=== PATIENT | male | born 1970 | race Caucasian/White ===

== ENCOUNTER 2016-11-19 07:05 | Emergency (ER) | payer BC, OTHER ==
[~2016-11-19] VITALS: Ht 180.3 cm; Wt 103.5 kg
[~2016-11-19 07:05] MED LIST: IBUP-1050 PO
[2016-11-19 07:10] VITALS: TEMP 36.6; Ht 180.3 cm; Wt 103.5 kg
[2016-11-19 07:39] VITALS: BP 151/94; PULSE 64; O2SAT 98
--- NOTE | 2016-11-19 07:43 | EMERGENCY ROOM VISIT NOTE ---
History Report prepared by Melania: Shey Yousif Under the Supervision of: Dr. Esteban Christian M.D. First contact with patient: 07:22 Chief Complaint: RECTAL BLEEDING Stated Complaint: LOWER GI/RECTAL BLEEDING History of Present Illness The patient is a 46 year old male who presents to the Emergency Room with complaints of a sudden episode or rectal bleeding that occurred around 1 hour prior to arrival. The patient states that he had a normal bowel movement this morning, denying any straining or pain with his bowel movement. He states that when he went to wipe he noticed a large amount of blood on the toilet paper and in the toilet. The patient states that he was then dripping blood and states that it took 15-20 minutes to stop. He denies any history of this, but states that he has had small streaks of blood once every 4-5 months with a bowel movement. The patient denies any recent rectal trauma. He states that he had a normal colonoscopy two years ago. The patient states that he has a history of diverticulitis. He denies being on any anticoagulants. The patient reports moderate use of Ibuprofen, noting that he takes it twice per week. He reports a surgical history of an appendectomy. The patient denies any abdominal pain. He additionally reports that he rides an exercise bike at 1.5 hours at a time very frequently. Source of History: patient Onset: one hour prior to arrival Position: other (rectal) Quality: other (bleeding) Timing: other (sudden episode) Associated Symptoms: No abdominal pain Review of Systems See HPI for pertinent positives & negatives. A total of 10 systems reviewed and were otherwise negative. Past Medical & Surgical Medical Problems: (1) Appendicitis Surgical Problems: (1) History of appendectomy (2) History of vasectomy Family History Diabetes mellitus FH: cancer FH: diverticulitis MOTHER FH: heart disease Hypertension Social History Smoking Status: Never Smoker Alcohol Use: heavy Drug Use: none Marital Status: Housing Status: lives with family Occupation Status: employed Current/Historical Medications No Active Prescriptions or Reported Meds Allergies Coded Allergies: No Known Allergies (Unverified , 11/19/16) Physical Exam Vital Signs Date Time Temp Pulse Resp B/P (MAP) Pulse Ox O2 Delivery O2 Flow Rate FiO2 11/19/16 07:39 64 18 151/94 98 Room Air 11/19/16 07:10 36.6 66 18 143/97 97 Room Air Physical Exam GENERAL: Patient is in no acute distress. HEENT: No acute trauma, normocephalic atraumatic, mucous membranes moist, no nasal congestion, no scleral icterus. NECK: No stridor, no adenopathy, no meningismus, trachea is midline. LUNGS: Clear to auscultation bilaterally, no wheeze, no rhonchi, breath sounds equal. HEART: Without murmurs gallops or rubs, regular rate and rhythm. ABDOMEN: Soft, nontender, bowel sounds positive, no hernias, no peritonitis. RECTAL: At the 10 and 11 oclock position of the anus, there are 2 mucosal tears that are not actively bleeding, no hemorrhoids, brown stool, no masses felt. EXTREMITIES: No cyanosis or edema, full range of motion of all the joints without pain or difficulty, no signs for acute trauma. NEUROLOGIC: Oriented x 3, no acute motor or sensory deficits, no focal weakness. SKIN: No rash, no jaundice, no diaphoresis. Medical Decision & Procedures ED Course 07: The patient was evaluated in room B11B. A complete history and physical exam was performed. I discussed the exam findings with him and I discussed the treatment plan. He verbalized complete understanding and agreement. He is ready to go home. Medical Decision The patient is a 46 year old male who presents to the ED with complaints of rectal bleeding. Differential diagnoses considered include Coagulopathy, anemia , hemorrhoids, anal tearing, lower GI bleeding. The patient presents with bright red rectal bleeding. He has no abdominal pain. He is not on any anticoagulation. On exam, he has some anal mucosal tears which I think had been bleeding earlier. There is no evidence for mass by rectal exam and the stool was brown in color. The patient was reassured. He is being discharged with conservative measures. Vaseline and gentle wiping were suggested. If worsening, he can return. Medication Reconcilliation Current Medication List: was personally reviewed by me Impression Primary Impression: Anal tear Additional Impression: Rectal bleeding Scribe Attestation The scribe's documentation has been prepared under my direction and personally reviewed by me in its entirety. I confirm that the note above accurately reflects all work, treatment, procedures, and medical decision making performed by me. Departure Information Dispostion Home / Self-Care Prescriptions No Active Prescriptions or Reported Meds Referrals Gregorio Martinez DO (PCP) Forms HOME CARE DOCUMENTATION FORM, IMPORTANT VISIT INFORMATION Patient Instructions My [facility] Additional Instructions vasoline to the area as discussed wipe gently return if worsening Problem Qualifiers
== END 2016-11-19 07:51 | disposition home or self-care (01) ==
LOC: C.EDB 07:05
DX: K62.81 Anal sphincter tear (healed) (nontraumatic) (old) (principal); K62.5 Hemorrhage of anus and rectum; Z83.3 Family history of diabetes mellitus; Z80.9 Family history of malignant neoplasm, unspecified; Z83.79 Family history of other diseases of the digestive system; Z82.49 Family history of ischemic heart disease and other diseases of the circulatory system

== ENCOUNTER 2020-05-22 00:57 | Inpatient (IN) ==
[2020-05-22 01:36] LABS: Basophils # (auto) 0.03 K/uL (0-0.2); Basophils % (auto) 0.3 %; Eosinophils # (auto) 0.22 K/uL (0-0.5); Hematocrit (blood only) 35.9 % (42-52); Hemoglobin 12.1 g/dL (14.0-18.0); Immature Granulocytes # (auto) 0.05 K/uL (0.00-0.02); Immature Granulocytes % (auto) 0.5 %; Lymphocytes # (auto) 3.97 K/uL (1.2-3.4); Mean Corpuscular Hemoglobin 28.9 pg (25-34); Mean Corpuscular Hgb Conc 33.7 g/dL (32-36); Mean Corpuscular Volume 85.7 fL (80-100); Mean Platelet Volume 9.4 fL (7.4-10.4); Monocytes # (auto) 0.79 K/uL (0.11-0.59); Monocytes % (auto) 7.2 %; Neutrophils # (auto) 5.97 K/uL (1.4-6.5); Platelet Count 331 K/uL (130-400); RDW Coefficient of Variation 12.9 % (11.5-14.5); RDW Standard Deviation 40.2 fL (36.4-46.3); Red Blood Count 4.19 M/uL (4.7-6.1); White Blood Count 11.03 K/uL (4.8-10.8)
--- NOTE | 2020-05-22 01:37 | Emergency Department Note ---
History of Present Illness General Chief complaint: GI Assessment Stated complaint: INTESTINAL BLEEDING,TOLD TO COME BACK Time Seen by Provider: 05/22/20 01:03 Source: patient Mode of arrival: ambulatory Limitations: no limitations History of Present Illness This patient is a 49-year-old male who presents to the emergency department complaining of GI bleeding. The patient states that he was seen here 2 days ago due to an episode of rectal bleeding. He states that he had a large amount of bleeding at that time, he was bleeding through his clothes in the car. The bleeding slowed/stopped while he was here and he was discharged to follow-up with GI. His appointment is scheduled for later this morning. The patient states that about 4 hours prior to arrival, he felt a slight pain in the left lower quadrant of his abdomen. 20 minutes ago, he had the urge to have a bowel movement, and when he went it was just blood. He states it was a large amount of blood, no bleeding in his underwear since then. He does have a history of di verticulitis and had a colonoscopy around age 41. He denies any recent NSAID use. He denies any history of GI bleeding other than these 2 episodes. He denies any lightheadedness/syncope. He denies nausea/vomiting or painful bowel movements. Home Medications Medication Instructions Recorded Confirmed Type ciprofloxacin HCl 500 mg PO BID #15 tab 05/23/20 Rx metronidazole 500 mg PO TID #22 tab 05/23/20 Rx Allergies Allergy/AdvReac Type Severity Reaction Status Date / Time Penicillins Allergy Unknown STRONG Verified 05/22/20 01:16 FAMILY HX ALLERGY Past Med/Surg History Medical History Diverticulitis Surgical History History of appendectomy History of vasectomy Family History Mother Diverticulosis s/p colonic resection Grandfather (Paternal) Diverticulosis Social History Smoking Status: Never smoker Hx Alcohol Use: Yes Hx Substance Use: No Preferred Language: Icelandic Communication Ability: Effective Beliefs That Will Affect Care: None Current Living Situation: Spouse and Family Other Information That Helps Us Care for You: No Feels Safe at Home: Yes Safety Concerns: Feels Safe At This Time Assistive Devices: None Review of Systems A total of 10 systems reviewed and were otherwise negative Physical Exam Vital Signs Vital Signs - 24 hr 05/22/20 00:59 05/22/20 02:10 05/22/20 02:30 Temperature 36.5 C Temperature Source Temporal Artery Scan Pulse Rate 88 73 Pulse Rate [Right Finger] 66 Pulse Rate from SpO2 Sensor 73 Respiratory Rate 16 22 18 Respiratory Effort / Characteristics Non-Labored Spontaneous Respiratory Depth Normal Normal Respiratory Pattern Regular Blood Pressure 162/82 H Blood Pressure [Right Arm] 162/82 H Blood Pressure Mean 108 Blood Pressure Mean [Right Arm] 108 Blood Pressure Position [Right Arm] Lying Pulse Oximetry 98 98 98 Oxygen Delivery Method Room Air Room Air Sepsis Recent Fever Within 48 Hours No Sepsis New/Unexplained Change in Mental Status No Sepsis Action Taken by Nursing No Action Required VITALS: Vitals are noted on the nurse's note and reviewed by myself. GENERAL: This is a 49-year-old male, in no acute distress, nondiaphoretic, well- developed well-nourished. SKIN: The skin was without rashes. EYES: Pupils equal round and reactive to light and accommodation. MOUTH: Mucous membranes moist. NECK: Supple without nuchal rigidity. HEART: Regular rate and rhythm without murmurs gallops or rubs. LUNGS: Clear to auscultation bilaterally without wheezes, rales or rhonchi. ABDOMEN: Positive bowel sounds x 4. Soft, nontender to palpation. No guarding or rebound tenderness. RECTAL: No external hemorrhoids noted. Bright red blood noted on rectal exam. NEURO: Patient was alert and oriented to person place and time. Course Consultations Consultation #1: Dr. Ankit Roman [facility] [place] Administered Medications Ciprofloxacin Lactate (Cipro / D5w) 200 mg in 100 mls @ 100 mls/hr IV Q12 [facility]; Protocol Stop: 06/01/20 20:59 Last Infusion: 05/23/20 22:55 Dose: 0 mls/hr Documented by: [id number] Admin: 05/23/20 21:15 Dose: 100 mls/hr Documented by: [id number] Infusion: 05/23/20 10:15 Dose: 0 mls/hr Documented by: [id number] Admin: 05/23/20 09:11 Dose: 100 mls/hr Documented by: [id number] Infusion: 05/22/20 22:21 Dose: 0 mls/hr Documented by: [id number] Admin: 05/22/20 21:02 Dose: 100 mls/hr Documented by: [id number] Metronidazole (Flagyl) 500 mg in 100 mls @ 100 mls/hr IV Q8H MARCOS Stop: 06/01/20 11:59 Last Infusion: 05/23/20 21:19 Dose: 0 mls/hr Documented by: [id number] Admin: 05/23/20 20:13 Dose: 100 mls/hr Documented by: [id number] Infusion: 05/23/20 13:15 Dose: 0 mls/hr Documented by: [id number] Admin: 05/23/20 12:13 Dose: 100 mls/hr Documented by: [id number] Infusion: 05/23/20 06:14 Dose: 0 mls/hr Documented by: [id number] Admin: 05/23/20 05:08 Dose: 100 mls/hr Documented by: [id number] Infusion: 05/22/20 21:02 Dose: 0 mls/hr Documented by: [id number] Admin: 05/22/20 20:02 Dose: 100 mls/hr Documented by: [id number] Infusion: 05/22/20 12:45 Dose: 0 mls/hr Documented by: [id number] Admin: 05/22/20 11:41 Dose: 100 mls/hr Documented by: [id number] Discontinued Medications Potassium Chloride/Sodium Chloride (Normal Saline W/20 Meq Kcl) 20 meq in 1,000 mls @ 80 mls/hr IV .[id number] MARCOS Stop: 05/23/20 18:49 Last Infusion: 05/23/20 17:38 Dose: 0 mls/hr Documented by: [id number] Admin: 05/23/20 05:30 Dose: 100 mls/hr Documented by: [id number] Infusion: 05/23/20 05:30 Dose: 100 mls/hr Documented by: [id number] Admin: 05/22/20 20:01 Dose: 100 mls/hr Documented by: [id number] Infusion: 05/22/20 18:53 Dose: 100 mls/hr Documented by: [id number] Admin: 05/22/20 08:53 Dose: 100 mls/hr Documented by: [id number] Pantoprazole Sodium 40 mg/ (Syringe) 10 mls @ 5 mls/min IV BID MARCOS Stop: 06/21/20 08:59 Last Admin: 05/22/20 10:36 Dose: 5 mls/min Documented by: [id number] Ioversol (Ioversol 100ml) 100 ml IV ONCE ONE Stop: 05/22/20 02:10 Last Admin: 05/22/20 02:09 Dose: 92 ml Documented by: [id number] Medical Decision Making Differential Diagnosis Diverticulosis, AVM, coagulopathy, colitis, inflammatory bowel disease, malignancy, Arabella-Schultz tear, esophagitis, peptic ulcer disease, variceal bleed, gastritis, epistaxis, fissure, hemorrhoids, as well as other pathologies. Home Medications Current Medication List: was personally reviewed by me Laboratory Data Attestation: I reviewed the patient's lab results. Result diagrams: 05/23/20 21:00 05/22/20 01:27 Lab Results 05/22/20 05/22/20 05/22/20 Range/Units 01:27 01:27 01:27 WBC 11.03 H (4.8-10.8) K/uL RBC 4.19 L (4.7-6.1) M/uL Hgb 12.1 L (14.0-18.0) g/dL Hct 35.9 L (42-52) % MCV 85.7 (80-100) fL MCH 28.9 (25-34) pg MCHC 33.7 (32-36) g/dL RDW Std Deviation 40.2 (36.4-46.3) fL RDW Coeff of Emanuel 12.9 (11.5-14.5) % Plt Count 331 (130-400) K/uL MPV 9.4 (7.4-10.4) fL Immature Gran % (Auto) 0.5 % Neut % (Auto) 54.0 % Lymph % (Auto) 36.0 % [place] % (Auto) 7.2 % Eos % (Auto) 2.0 % Baso % (Auto) 0.3 % Neut # (Auto) 5.97 (1.4-6.5) K/uL Lymph # (Auto) 3.97 H (1.2-3.4) K/uL [place] # (Auto) 0.79 H (0.11-0.59) K/uL Eos # (Auto) 0.22 (0-0.5) K/uL Baso # (Auto) 0.03 (0-0.2) K/uL Immature Gran # (Auto) 0.05 H (0.00-0.02) K/uL PT 10.2 (9.0-12.0) Seconds INR 1.0 (0.9-1.1) APTT 22.2 (21.0-31.0) Seconds PTT Ratio 0.8 Sodium (136-145) mmol/L Potassium (3.5-5.1) mmol/L Chloride (98-107) mmol/L Carbon Dioxide (21-32) mmol/L Anion Gap (3-11) BUN (7-18) mg/dl Creatinine (0.6-1.4) mg/dl Est Cr Clr Drug Dosing ml/min Est GFR ( Amer) Est GFR (Non-Af Amer) BUN/Creatinine Ratio (10-20) Glucose (70-99) mg/dl Calcium (8.5-10.1) mg/dl Total Bilirubin (0.2-1) mg/dl AST (15-37) U/L ALT (12-78) U/L Alkaline Phosphatase (45-117) U/L Total Protein (6.4-8.2) gm/dl Albumin (3.4-5.0) gm/dl Globulin (2.5-4.0) gm/dl Albumin/Globulin Ratio (0.9-2) COVID-19 Eval Order SARS-CoV-2 (PCR) (Negative) Influenza Type A (PCR) (Neg) Influenza Type B (PCR) (Neg) RSV (RT-PCR) (Neg) Blood Type A Negative Antibody Screen NEGATIVE 05/22/20 05/22/20 05/22/20 Range/Units 01:27 02:39 02:39 WBC (4.8-10.8) K/uL RBC (4.7-6.1) M/uL Hgb (14.0-18.0) g/dL Hct (42-52) % MCV (80-100) fL MCH (25-34) pg MCHC (32-36) g/dL RDW Std Deviation (36.4-46.3) fL RDW Coeff of Emanuel (11.5-14.5) % Plt Count (130-400) K/uL MPV (7.4-10.4) fL Immature Gran % (Auto) % Neut % (Auto) % Lymph % (Auto) % [place] % (Auto) % Eos % (Auto) % Baso % (Auto) % Neut # (Auto) (1.4-6.5) K/uL Lymph # (Auto) (1.2-3.4) K/uL [place] # (Auto) (0.11-0.59) K/uL Eos # (Auto) (0-0.5) K/uL Baso # (Auto) (0-0.2) K/uL Immature Gran # (Auto) (0.00-0.02) K/uL PT (9.0-12.0) Seconds INR (0.9-1.1) APTT (21.0-31.0) Seconds PTT Ratio Sodium 141 (136-145) mmol/L Potassium 3.8 (3.5-5.1) mmol/L Chloride 111 H (98-107) mmol/L Carbon Dioxide 25 (21-32) mmol/L Anion Gap 5.0 (3-11) BUN 16 (7-18) mg/dl Creatinine 1.22 (0.6-1.4) mg/dl Est Cr Clr Drug Dosing 93.2 ml/min Est GFR ( Amer) 80.8 Est GFR (Non-Af Amer) 69.7 BUN/Creatinine Ratio 13.4 (10-20) Glucose 123 H (70-99) mg/dl Calcium 8.0 L (8.5-10.1) mg/dl Total Bilirubin 0.3 (0.2-1) mg/dl AST 17 (15-37) U/L ALT 32 (12-78) U/L Alkaline Phosphatase 62 (45-117) U/L Total Protein 6.7 (6.4-8.2) gm/dl Albumin 3.1 L (3.4-5.0) gm/dl Globulin 3.6 (2.5-4.0) gm/dl Albumin/Globulin Ratio 0.9 (0.9-2) COVID-19 Eval Order CovFluRsv at [facility] SARS-CoV-2 (PCR) NEGATIVE (Negative) Influenza Type A (PCR) Negative (Neg) Influenza Type B (PCR) Negative (Neg) RSV (RT-PCR) Negative (Neg) Blood Type Antibody Screen Imaging Data Attestation: I personally reviewed and interpreted this imaging study as follows: Radiologist's Impression: Abdomen/Pelvis CT 05/22/20 01:18 CT OF THE ABDOMEN AND PELVIS WITH CONTRAST CLINICAL HISTORY: Left lower quadrant abdominal pain. GI bleed. COMPARISON STUDY: CT of the abdomen and pelvis February 27, 2013. TECHNIQUE: Following IV administration of 92 mL of Optiray-320, axial images of the abdomen and pelvis were obtained from the lung bases to the proximal femurs. Images were reviewed in the axial, sagittal, and coronal planes. IV contrast was administered without complication. Automated exposure control was utilized for the study. A dose lowering technique was utilized adhering to the principles of ALARA. CT DOSE: 1101.76 mGy.cm FINDINGS: Lung bases are clear. No pneumatosis, free air or portal venous gas is present. The liver, spleen, adrenal glands, kidneys and pancreas are unremarkabl e. There is no biliary or pancreatic ductal dilatation. There is no peripancreatic or pericholecystic infiltration. No hydronephrosis is present. Nephrograms are symmetric. Major vasculature is patent. Note is made of diverticulosis of the descending colon and sigmoid colon. There is no definite evidence for acute diverticulitis. There is subtle infiltration adjacent to the descending colon. No bowel wall thickening is identified. No active extravasation within the small or large bowel is identified. There is no lymphadenopathy. The appendix is surgically absent. IMPRESSION: 1. Left colon diverticulosis. Subtle infiltration adjacent to the descending colon is equivocal for mild diverticulitis. No bowel wall thickening. No free air or abscess. No active extravasation identified within the small or large bowel. 2. No bowel obstruction. ACT 112: Negative or not required by law. Electronically signed by: Mike Faria M.D. 05/22/2020 7:00 AM ECG Data Attestation: I personally reviewed and interpreted this ECG as follows: Indication: + weakness Rate (beats per minute): 82 Rhythm: + normal sinus ECG Intervals/blocks: + Normal QRS ECG ST segments: + Normal ST segments ECG Findings: + LVH Change: no significant change MDM Narrative The patient is a 49-year-old male who presents today complaining of rectal bleeding. Patient has had two episodes of significant rectal bleeding in the past 2 days, no bleeding between these episodes. Patient was seen here 2 days ago and discharged with close outpatient follow up as bleeding had stopped. Labs today show that the hemoglobin has dropped from 14.5 to 12.1 since his last visit here. CT was performed and showed questionable mild diverticulitis. Patient has had very minimal pain, no fevers and presentation does not seem consistent with diverticulitis. Antibiotic administration was deferred to hospitalist. Patient was admitted to the [facility] Hospitalist service for further care of his GI bleed. Impression & Plan Acute lower GI bleeding Discharge Plan Visit Data Chief Complaint: GI Assessment Stated Complaint: INTESTINAL BLEEDING,TOLD TO COME BACK ED Provider: Rosa Yee ED Midlevel Provider: Reina Mast Discharge Problem: Acute lower GI bleeding Patient Disposition: Admitted As Inpatient Discharge Instructions Interventions: ED Discharge Assessment Last Done: 05/22/20 06:05
[2020-05-22 01:51] LABS: Partial Thromboplastin Ratio 0.8; Partial Thromboplastin Time 22.2 Seconds (21.0-31.0); Prothrombin Time 10.2 Seconds (9.0-12.0)
[2020-05-22 01:57] LABS: Albumin Level 3.1 gm/dl (3.4-5.0); BUN Creatinine Ratio 13.4 (10-20); Creatinine Clr Calc Pharmacy 93.2 ml/min; Est GFR (African American) 80.8; Est GFR (Non-African American) 69.7; Potassium 3.8 mmol/L (3.5-5.1)
[2020-05-22 01:59] LABS: Albumin Globulin Ratio 0.9 (0.9-2); Bilirubin,Total 0.3 mg/dl (0.2-1); Globulin 3.6 gm/dl (2.5-4.0); Total Protein 6.7 gm/dl (6.4-8.2)
[2020-05-22] MEDS ORDERED: OPTIRAY 320 100ml IV ONE (02:09)
--- NOTE | 2020-05-22 03:06 | Hospitalist Consultation ---
Date of Consultation May 22, 2020 History of Present Illness Allergies Allergy/AdvReac Type Severity Reaction Status Date / Time Penicillins Allergy Unknown STRONG Verified 05/22/20 01:16 FAMILY HX ALLERGY Home Medications Medication Instructions Recorded Confirmed Type ibuprofen 400 mg PO DIRECTED PRN 05/20/20 05/22/20 History Patient History Medical History Diverticulitis Surgical History History of appendectomy History of vasectomy Social History Smoking Status: Never smoker Preferred Language: Tajik Feels Safe at Home: Yes Results & Data Results & Data ([facility]) Vital Signs (Past 12 Hours) Vital Signs Temp Pulse Pulse Resp BP BP Pulse Ox 05/22/20 02:30 66 18 162/82 H 98 05/22/20 02:10 73 22 162/82 H 98 05/22/20 00:59 36.5 C 88 16 98
--- NOTE | 2020-05-22 03:07 | History & Physical Report ---
Date of Service May 22, 2020 Assessment & Plan (1) Hematochezia: Patient is a 49 year old male with PMHx diverticulitis who presents after 1 hour history of bright red blood per rectum. Of note, patient had presented on 05/20/20 with similar concerns, however, the bleeding at that time had stopped and it was felt that patient was stable enough to go home with plans to have an appointment with GI on 05/22/20 at 9:30AM. Lower GI Bleed -Hemoglobin at 12.3 on admission, a ~2 point drop since symptoms started 2 days ago -Patient currently asymptomatic in regards to pain, discomfort, or active hematochezia -CT Ab/Pelv without signs of diverticular bleed as the cause. Very mild diverticulitis noted in the descending colon, however, symptomatically patient is without pain. -Will defer antibiotics at this time unless symptoms of abdominal pain or fever. -GI Consulted for possibly colonoscopy -As suspect lower GI bleed, no indication at this time for protonix -NPO -Will check H&H q8h, patient consented for blood if Hgb <7, may see slight drop due to dilutional effects from IVF -NSS +20meq KCl 100ml/hr x2L while NPO Dispo: Med/Surg telemetry for closer monitoring of HR ad BP as signs of worsening bleed, IVF, likely colonoscopy. FEN: NPO, NSS +20meqKCl 100ml/hr x2L DVT: SCDs, chemoprophylaxis contraindicated Code: Full History of Present Illness Chief Complaint: rectal bleeding Primary Care Provider: NO PCP Patient is a 49 year old male with PMHx diverticulitis who presents after 1 hour history of bright red blood per rectum. Of note, patient had presented on 05/20/20 with similar concerns, however, the bleeding at that time had stopped and it was felt that patient was stable enough to go home with plans to have an appointment with GI on 05/22/20 at 9:30AM. Patient notes that since he was last seen in the ED he had no issues until midnight tonight where he felt that he was about to have diarrhea. He notes that he had roughly 4-5 bowel movements all consisting of bright red blood. Patient then immediately presented to the ED instead of waiting for his appointment later this day for evaluation. Since he has been in the hospital, he has not had any further bleeding per rectum. He notes that prior to the bloody bowel movements he did have some lower L quadrant abdominal pain, however, that has also resolved. Currently patient notes that he feels well and is without fever, chills, SOB, chest pain, abdominal pain, dysuria, hematuria. He does note the recent history of hematochezia. Med Hx: Diverticulitis Surg Hx: Appendectomy, Colonoscopy Soc Hx: No tobacco or illicit drug use. Drinks 12 alcoholic beverages/month Allergies Allergy/AdvReac Type Severity Reaction Status Date / Time Penicillins Allergy Unknown STRONG Verified 05/22/20 01:16 FAMILY HX ALLERGY Home Medications Medication Instructions Recorded Confirmed Type ibuprofen 400 mg PO DIRECTED PRN 05/20/20 05/22/20 History Past Med/Surg History Medical History Diverticulitis Surgical History History of appendectomy History of vasectomy Family History Mother Diverticulosis s/p colonic resection Grandfather (Paternal) Diverticulosis Social History Smoking Status: Never smoker Hx Alcohol Use: Yes Hx Substance Use: No Preferred Language: Bahraini Communication Ability: Effective Beliefs That Will Affect Care: None Current Living Situation: Spouse and Family Other Information That Helps Us Care for You: No Feels Safe at Home: Yes Safety Concerns: Feels Safe At This Time Assistive Devices: None Review of Systems Review of Systems: All systems reviewed & are unremarkable except as noted in Subjective Physical Exam Constitutional: WD/WN, vitals as above Eyes: PERRL, conjunctivae normal, anicteric sclerae ENMT: external ear and nose normal, oropharynx normal Respiratory: normal respiratory effort, lungs clear to auscultation Cardiovascular: RRR, no murmur, no edema Gastrointestinal (Abdomen): normal bowel sounds, soft, nontender, no hepatosplenomegaly Deferred rectal exam. Per discussion with ED provider rectal exam did show bright red blood per rectum Musculoskeletal: no cyanosis or clubbing, extremities motor strength 5/5 Skin: no rashes, warm and dry Neurologic: PERRL, EOMI, accommodation nl, no face palsy, no dysarthria Psychiatric: A+Ox3, euthymic affect Results & Data Results & Data ([facility]) Vital Signs (Past 12 Hours) Vital Signs Temp Pulse Pulse Resp BP BP Pulse Ox 05/22/20 02:30 66 18 162/82 H 98 05/22/20 02:10 73 22 162/82 H 98 05/22/20 00:59 36.5 C 88 16 98 Code Status & VTE Plan VTE Prophylaxis Plan VTE Prophylaxis will be ordered: Yes Supervising Physician Co-Signing Physician Notes Patient seen and examined, chart reviewed, case discussed with Dr. Hines and I agree with his assessment and plan as documented above. Briefly, patient is a 49yo male wtih history of diverticulosis presenting with hematochezia - large passage of bright red blood per rectum. Patient was to see GI today in outpatient clinic. He denies abdominal pain, nausea, vomiting. No additional complaints at this time On exam he is afebrile, HD stable, NAD Skin - intact, no rash HEENT - NC/AT, PERRL, MMM Heart - +S1/S2, regular, no m/r/g Lungs - CTA Abd - +BS, soft, NT/ND Ext - No edema Labs and images reviewed. HBG=12.1 from 14.5 Assessment/Plan: 49yo male with history of diverticulosis presenting with hematochezia. HD stable. Hgb=12.1 -Suspect diverticular bleed -NPO, maintain 2 large PIVs, trend CBC - transfuse for ongoing blood loss, symptomatic anemia or Hgb <7 -GI consultation appreciated -Remainder of plan as above Resident Activity Tracking Resident Involvement: Resident Care Provided Care Provided: Adult [facility]
[2020-05-22 03:29] LABS: Influenza A virus by PCR Negative (Neg); Influenza B virus by PCR Negative (Neg); RSV by PCR Negative (Neg); SARS CoV2 RNA(COVID-19) InHosp NEGATIVE (Negative)
--- NOTE | 2020-05-22 07:02 | CT Scan Report ---
CT OF THE ABDOMEN AND PELVIS WITH CONTRAST CLINICAL HISTORY: Left lower quadrant abdominal pain. GI bleed. COMPARISON STUDY: CT of the abdomen and pelvis February 27, 2013. TECHNIQUE: Following IV administration of 92 mL of Optiray-320, axial images of the abdomen and pelvi s were obtained from the lung bases to the proximal femurs. Images were reviewed in the axial, sagitt al, and coronal planes. IV contrast was administered without complication. Automated exposure contro l was utilized for the study. A dose lowering technique was utilized adhering to the principles of A СВЕТЛАНА. CT DOSE: 1101.76 mGy.cm FINDINGS: Lung bases are clear. No pneumatosis, free air or portal venous gas is present. The liver, spleen, adrenal glands, kidneys and pancreas are unremarkable. There is no biliary or pancreatic duct al dilatation. There is no peripancreatic or pericholecystic infiltration. No hydronephrosis is prese nt. Nephrograms are symmetric. Major vasculature is patent. Note is made of diverticulosis of the sandra cending colon and sigmoid colon. There is no definite evidence for acute diverticulitis. There is sub tle infiltration adjacent to the descending colon. No bowel wall thickening is identified. No active extravasation within the small or large bowel is identified. There is no lymphadenopathy. The appendi x is surgically absent. IMPRESSION: 1. Left colon diverticulosis. Subtle infiltration adjacent to the descending colon is equivocal for m ild diverticulitis. No bowel wall thickening. No free air or abscess. No active extravasation identif ied within the small or large bowel. 2. No bowel obstruction. ACT 112: Negative or not required by law. Electronically signed by: Mike Faria M.D. 05/22/2020 7:00 AM
[2020-05-22] MEDS ORDERED: ONDANSETRON INJ 2 MG/ML 2 ML VIAL IV PRN (07:27)
--- NOTE | 2020-05-22 08:47 | Medical Student H&P ---
Date of Service May 22, 2020 Assessment & Plan (1) Hematochezia: Patient is a 49 year old male with PMHx of left colon diverticulosis currently on HOD0 after presenting following an episode of painless lower G.I bleed. Patient had a similar episode on 05-20-2020 which resolved without interv ention Painless Lower G.I Bleed - Patient is presenting after experiencing a second episode of painless lower G.I bleed within 3 days. - Patient acknowledges a history of colonic diverticula from a colonoscopy 8 years ago. - Colonoscopy also extracted 2 polyps and patient was scheduled for follow-up in 10 years - CT Ab/Pelvis showed mild left colonic diverticula. Equivocal on presence of inflammation - Hgb is 12.8 g/dL down from 15.0 g/dL since Wednesday IV Fluids have been started NSS + 20meq KCL 100ml/hr Patient has been placed NPO IV ... have been started for spossible diverticulitis PPIs are not indicated because of lower G.I Bleed Recheck H&H every 4-6 hours to monitor CBC trends Follow-up outpatient with PCP and colonoscopy in 8 weeks Dispo: Med/Surg telemetry for closer monitoring of HR ad BP as signs of worsening bleed, IVF, likely colonoscopy. FEN: Clear Liquid Diet, NSS +20meqKCl 100ml/hr x2L DVT: SCDs, Ambulatory Code: Full Admission and Anticipated Discharge Date Admission Date: May 22, 2020 History of Present Illness Primary Care Provider: NO PCP Patient is a 49 year old male currently on HOD0 after presenting to the emergency room with painless lower G.I Bleed. Patient states being in his usual state of health until Wednesday05-20-2020 when he went to use the bathroom and notice that his stool was soft and grossly bloody. Patient states that he had 2 subsequent bowel movements which were also bloody which prompted him to call his significant other to drive him to the emergency room. He states that the bleeding persisted in the car and on the way to the emergency room but ceased once the patient was seen by a physician. The patient was given fluids and subsequently discharged with no work-up. Yesterday at midnight, patient states that the bleeding reoccurred after he went to the bathroom to have a bowel movement. His stool was once again bright red and soft. This episode of bleeding was accompanied by mild LLQ pain. This prompted the patient to come the emergency room. At the ER, a CT scan was ordered which showed evidence of left colon diverticulosis. Patient does acknowledge that a colonoscopy done 8 years ago showed evidence of diverticulosis but prior to Wednesday, he never had a bleeding episode. However, he does acknowledge prior flares of diverticulitis causing him LLQ pain. Since admission, patient has not experienced any bloody bowel movements. ROS: Patient denies any headache, fever, chest pain, shortness of breath, dysuria, hematuria, pneumaturia, hematemesis, hemoptysis, constipation, diarrhea, change in stool caliber, weight loss Allergies Allergy/AdvReac Type Severity Reaction Status Date / Time Penicillins Allergy Unknown STRONG Verified 05/22/20 01:16 FAMILY HX ALLERGY Home Medications Medication Instructions Recorded Confirmed Type ibuprofen 400 mg PO DIRECTED PRN 05/20/20 05/22/20 History Past Med/Surg History Medical History Diverticulitis Surgical History History of appendectomy History of vasectomy Family History (Updated 05/22/20 @ 08:31 by Jaime Lopez) Mother Diverticulosis s/p colonic resection Grandfather (Paternal) Diverticulosis Social History Smoking Status: Never smoker Hx Alcohol Use: Yes Hx Substance Use: No Preferred Language: Namibian Communication Ability: Effective Beliefs That Will Affect Care: None Current Living Situation: Spouse and Family Other Information That Helps Us Care for You: No Feels Safe at Home: Yes Safety Concerns: Feels Safe At This Time Assistive Devices: None Review of Systems All systems reviewed & are unremarkable except as noted in HPI & below as per Subjective / HPI Physical Exam Constitutional: WD/WN, vitals as above Eyes: PERRL, conjunctivae normal, anicteric sclerae ENMT: external ear and nose normal, oropharynx normal Respiratory: normal respiratory effort, lungs clear to auscultation Cardiovascular: RRR, no murmur, no edema Gastrointestinal (Abdomen): normal bowel sounds, soft, nontender, no hepatosplenomegaly Musculoskeletal: no cyanosis or clubbing, extremities motor strength 5/5 Skin: no rashes, warm and dry Neurologic: PERRL, EOMI, accommodation nl, no face palsy, no dysarthria Psychiatric: A+Ox3, euthymic affect Results & Data ([facility]) Vital Signs (Past 12 Hours) Vital Signs Temp Pulse Pulse Resp BP BP BP 05/22/20 07:28 36.7 C 60 18 125/79 05/22/20 06:00 78 13 141/90 H 05/22/20 05:30 67 19 05/22/20 05:00 63 21 05/22/20 04:30 65 21 147/85 H 05/22/20 04:00 66 17 144/97 H 05/22/20 03:30 67 13 158/82 H 05/22/20 03:03 76 14 160/82 H 05/22/20 02:30 66 18 162/82 H 05/22/20 02:10 73 22 162/82 H 05/22/20 00:59 36.5 C 88 16 Pulse Ox 05/22/20 07:28 98 05/22/20 06:00 100 05/22/20 05:30 97 05/22/20 05:00 98 05/22/20 04:30 98 05/22/20 04:00 98 05/22/20 03:30 98 05/22/20 03:03 99 05/22/20 02:30 98 05/22/20 02:10 98 05/22/20 00:59 98 Code Status & VTE Plan VTE Prophylaxis Plan VTE Prophylaxis will be ordered: No Reason for no VTE drug order: Contraindicated (Lower G.I Bleed)
[2020-05-22] MEDS: NSS + 20MEQ KCL 20 MEQ/1,000 ML BAG IV SCH ×2 (08:53→20:01)
[2020-05-22] MEDS ORDERED: PANTOprazole 40 MG in SYRINGE 0 ML IV SCH (09:00)
[2020-05-22 09:23] LABS: Basophils # (auto) 0.03 K/uL (0-0.2); Basophils % (auto) 0.3 %; Eosinophils # (auto) 0.09 K/uL (0-0.5); Eosinophils % (auto) 0.9 %; Hemoglobin 11.8 g/dL (14.0-18.0); Immature Granulocytes # (auto) 0.05 K/uL (0.00-0.02); Immature Granulocytes % (auto) 0.5 %; Lymphocytes # (auto) 2.45 K/uL (1.2-3.4); Lymphocytes % (auto) 24.4 %; Mean Corpuscular Hemoglobin 28.7 pg (25-34); Mean Corpuscular Hgb Conc 33.7 g/dL (32-36); Mean Corpuscular Volume 85.2 fL (80-100); Mean Platelet Volume 9.5 fL (7.4-10.4); Monocytes # (auto) 0.53 K/uL (0.11-0.59); Monocytes % (auto) 5.3 %; Neutrophils % (auto) 68.6 %; Platelet Count 332 K/uL (130-400); RDW Standard Deviation 40.3 fL (36.4-46.3); Red Blood Count 4.11 M/uL (4.7-6.1); White Blood Count 10.05 K/uL (4.8-10.8)
--- NOTE | 2020-05-22 09:54 | Hospitalist Progress Note ---
Date of Service May 22, 2020 Assessment & Plan Admission and Anticipated Discharge Date Admission Date: May 22, 2020 Results & Data Results & Data ([facility]) Vital Signs (Past 12 Hours) Vital Signs Temp Pulse Pulse Resp BP BP BP 05/22/20 09:37 36.7 C 60 18 125/79 05/22/20 07:28 36.7 C 60 18 125/79 05/22/20 06:00 78 13 141/90 H 05/22/20 05:30 67 19 05/22/20 05:00 63 21 05/22/20 04:30 65 21 147/85 H 05/22/20 04:00 66 17 144/97 H 05/22/20 03:30 67 13 158/82 H 05/22/20 03:03 76 14 160/82 H 05/22/20 02:30 66 18 162/82 H 05/22/20 02:10 73 22 162/82 H 05/22/20 00:59 36.5 C 88 16 Pulse Ox 05/22/20 09:37 98 05/22/20 07:28 98 05/22/20 06:00 100 05/22/20 05:30 97 05/22/20 05:00 98 05/22/20 04:30 98 05/22/20 04:00 98 05/22/20 03:30 98 05/22/20 03:03 99 05/22/20 02:30 98 05/22/20 02:10 98 05/22/20 00:59 98
--- NOTE | 2020-05-22 10:22 | Gastrointestinal Consultation ---
Date of Consultation May 22, 2020 Assessment & Plan (1) Diverticulitis: -Initiate Cipro & Flagyl. Would complete a 10 day course of antibiotic therapy. -Initiate liquid diet; low residue diet when advanced -Colonoscopy in 8 weeks as outpatient (2) Hematochezia: No further bleeding at present. H/H stable at 12.1/35.9. -Colonoscopy in 8 weeks as outpatient -Continue to monitor H/H Supervising Physician Co-Signing Physician Notes Agree with TANNER Vogel as above Abd: Soft, tender LLQ, ND, +BS Continue current therapy Outpatient colonoscopy in 6-8 weeks History of Present Illness Reason for Consultation: Hematochezia Attending Physician: Nicki Lane MD History of Present Illness Patient is a 49 yo M with PMH of diverticulitis once 7 years ago. He presented to the emergency room with hematochezia. He notes that this began on 05/20/2020. He reports that he noted soft stool and bright red blood with a bowel movement. He was seen in the ED that day, but was discharged due to resolution of the symptoms. He was scheduled for an outpatient GI appointment today for further evaluation. Unfortunately, due to recurrence of his symptoms, he returned to the Emergency Department. A CT scan indicated diverticulitis of the sigmoid colon. He notes that he did have this issue in 2013. He reports that each year he gets 2-3 episodes of pain and discomfort in the LLQ that he presumes are di verticulitis, but he doesn't seek care. He had a colonoscopy in 2013 that indicated diverticulitis & a tubular adenoma in the sigmoid colon. He is currently not bleeding. His H/H is stable at 12.1/35.9. He denies abdominal pain. He reports a family history of diverticulitis. He is not currently on antibiotic therapy at this time. Allergies Allergy/AdvReac Type Severity Reaction Status Date / Time Penicillins Allergy Unknown STRONG Verified 05/22/20 01:16 FAMILY HX ALLERGY Home Medications Medication Instructions Recorded Confirmed Type ibuprofen 400 mg PO DIRECTED PRN 05/20/20 05/22/20 History Patient History Medical History Diverticulitis Surgical History History of appendectomy History of vasectomy Family History Mother Diverticulosis s/p colonic resection Grandfather (Paternal) Diverticulosis Social History Smoking Status: Never smoker Hx Alcohol Use: Yes Hx Substance Use: No Preferred Language: Bengali Communication Ability: Effective Beliefs That Will Affect Care: None Current Living Situation: Spouse and Family Other Information That Helps Us Care for You: No Feels Safe at Home: Yes Safety Concerns: Feels Safe At This Time Assistive Devices: None Review of Systems Constitutional: no fever and no chills Respiratory: no cough and no dyspnea Cardiovascular: no chest pain Gastrointestinal: + abdominal pain and + blood in stools (no further bleeding since admission) Psychiatric: no problem reported Hematologic / Lymphatic: no unexplained weight loss Physical Exam Constitutional: well developed Neck: normal visual inspection Respiratory: normal respiratory effort Cardiovascular: Extremities: no edema Gastrointestinal (Abdomen): Inspection/Auscultation: abdomen normal to inspection Percussion/Palpation: abdomen soft; abdomen nontender Musculoskeletal: Head/Neck/Chest: normocephalic Psychiatric: A+Ox3, euthymic affect Results & Data ([facility]) Vital Signs (Past 12 Hours) Vital Signs Temp Pulse Pulse Resp BP BP BP 05/22/20 09:54 65 05/22/20 09:37 36.7 C 60 18 125/79 05/22/20 07:28 36.7 C 60 18 125/79 05/22/20 06:00 78 13 141/90 H 05/22/20 05:30 67 19 05/22/20 05:00 63 21 05/22/20 04:30 65 21 147/85 H 05/22/20 04:00 66 17 144/97 H 05/22/20 03:30 67 13 158/82 H 05/22/20 03:03 76 14 160/82 H 05/22/20 02:30 66 18 162/82 H 05/22/20 02:10 73 22 162/82 H 05/22/20 00:59 36.5 C 88 16 Pulse Ox 05/22/20 09:54 05/22/20 09:37 98 05/22/20 07:28 98 05/22/20 06:00 100 05/22/20 05:30 97 05/22/20 05:00 98 05/22/20 04:30 98 05/22/20 04:00 98 05/22/20 03:30 98 05/22/20 03:03 99 05/22/20 02:30 98 05/22/20 02:10 98 05/22/20 00:59 98 PG Care Time/CCT Total # of Minutes Spent Total Time Spent with Patient: Total time spent is greater than 50% in coordination of care (as documented) at patient's floor/unit and/or counseling patient: Coding Level of Care Code 30638 Inpt Consult Level 4 Diagnoses Diverticulitis K57.92 Hematochezia K92.1
[2020-05-22] MEDS: metroNIDAZOLE 500 MG/100 ML BAG IV SCH ×2 (11:41→20:02)
--- NOTE | 2020-05-22 11:53 | Medical Student Progress Note ---
Date of Service May 22, 2020 Assessment & Plan (1) Hematochezia: Patient is a 49 year old male with PMHx of left colon diverticulosis currently on HOD0 after presenting following an episode of painless lower G.I bleed. Patient had a similar episode on 05-20-2020 which resolved without inter vention Painless Lower G.I Bleed Acute blood loss anemia - Patient is presenting after experiencing a second episode of painless lower G.I bleed within 3 days. - Patient acknowledges a history of colonic diverticula from a colonoscopy 8 years ago. - Colonoscopy also extracted 2 polyps and patient was scheduled for follow-up in 10 years. - CT Ab/Pelvis showed mild left colonic diverticula. Equivocal on presence of inflammation. - Hgb is 12.8 g/dL, down from 15.0 g/dL on Wednesday. IV Fluids have been started NSS + 20meq KCL 100ml/hr. Will start clear liquid diet. PPIs are not indicated because of lower G.I Bleed. Recheck H&H every 4-6 hours to monitor CBC trends. - GI consulted - For colonoscopy in 8 wks. Treat for diverticulitis. Diverticulitis CT with equivocal on presence of inflammation. IV Ciprofloxacin and Metronidazole have been started for possible diverticulitis. Follow-up outpatient with PCP and colonoscopy in 8 weeks. Dispo: Med/Surg telemetry for closer monitoring of HR ad BP as signs of worsening bleed. FEN: Clear Liquid Diet, NSS +20meqKCl 100ml/hr x2L . DVT: Ambulatory Code: Full Admission and Anticipated Discharge Date Admission Date: May 22, 2020 Supervising Attestation Medical Student Supervision Note: I was personally present during medical student patient encounter and in dependently interviewed and examined the patient and verified the granados history and physical, reviewed labs and image studies, discussed the case with Jaime Lopez and agree with the findings and care plan. no further bleeding since hospitalized. continue to monitor h/h. continue IV abx for concern of diverticulitis. Subjective Patient is a 49 year old male currently on HOD0 after presenting to the emergency room with painless lower G.I Bleed. Patient states being in his usual state of health until Wednesday05-20-2020 when he went to use the bathroom and notice that his stool was soft and grossly bloody. Patient states that he had 2 subsequent bowel movements which were also bloody which prompted him to call his significant other to drive him to the emergency room. He states that the bleeding persisted in the car and on the way to the emergency room but ceased once the patient was seen by a physician. The patient was given fluids and subsequently discharged with no work-up. Yesterday at midnight, patient states that the bleeding reoccurred after he went to the bathroom to have a bowel movement. His stool was once again bright red and soft. This episode of bleeding was accompanied by mild LLQ pain. This prompted the patient to come the emergency room. At the ER, a CT scan was ordered which showed evidence of left colon diverticulosis. Patient does acknowledge that a colonoscopy done 8 years ago showed evidence of diverticulosis but prior to Wednesday, he never had a bleeding episode. However, he does acknowledge prior flares of diverticulitis causing him LLQ pain. Since admission, patient has not experienced any bloody bowel movements. ROS: Patient denies any headache, fever, chest pain, shortness of breath, dysuria, hematuria, pneumaturia, hematemesis, hemoptysis, constipation, diarrhea, change in stool caliber, weight loss Physical Exam Constitutional: WD/WN, vitals as above Eyes: PERRL, conjunctivae normal, anicteric sclerae ENMT: external ear and nose normal, oropharynx normal Respiratory: normal respiratory effort, lungs clear to auscultation Cardiovascular: RRR, no murmur, no edema Gastrointestinal (Abdomen): normal bowel sounds, soft, nontender, no hepatosplenomegaly Musculoskeletal: no cyanosis or clubbing, extremities motor strength 5/5 Skin: no rashes, warm and dry Neurologic: PERRL, EOMI, accommodation nl, no face palsy, no dysarthria Results & Data ([facility]) Vital Signs (Past 12 Hours) Vital Signs Temp Pulse Pulse Resp BP BP BP 05/22/20 11:03 36.7 C 66 18 128/76 05/22/20 09:54 65 05/22/20 09:37 36.7 C 60 18 125/79 05/22/20 07:28 36.7 C 60 18 125/79 05/22/20 06:00 78 13 141/90 H 05/22/20 05:30 67 19 05/22/20 05:00 63 21 05/22/20 04:30 65 21 147/85 H 05/22/20 04:00 66 17 144/97 H 05/22/20 03:30 67 13 158/82 H 05/22/20 03:03 76 14 160/82 H 05/22/20 02:30 66 18 162/82 H 05/22/20 02:10 73 22 162/82 H 05/22/20 00:59 36.5 C 88 16 Pulse Ox 05/22/20 11:03 99 05/22/20 09:54 05/22/20 09:37 98 05/22/20 07:28 98 05/22/20 06:00 100 05/22/20 05:30 97 05/22/20 05:00 98 05/22/20 04:30 98 05/22/20 04:00 98 05/22/20 03:30 98 05/22/20 03:03 99 05/22/20 02:30 98 05/22/20 02:10 98 05/22/20 00:59 98
--- NOTE | 2020-05-22 13:36 | Electrocardiogram Report ---
Test Reason : Blood Pressure : / mmHG Vent. Rate : 082 BPM Atrial Rate : 082 BPM P-R Int : 124 ms QRS Dur : 086 ms QT Int : 380 ms P-R-T Axes : 047 010 030 degrees QTc Int : 443 ms Normal sinus rhythm Minimal voltage criteria for LVH, may be normal variant Cannot rule out Anterior infarct , age undetermined Abnormal ECG When compared with ECG of 20-MAY-2020 15:29, No significant change was found Confirmed by Kt Zhao ([id number]) on 05/22/2020 1:35:59 PM Referred By: REFERRED SELF Confirmed By:Kt Zhao
[2020-05-22 16:44] LABS: Basophils # (auto) 0.03 K/uL (0-0.2); Basophils % (auto) 0.2 %; Eosinophils # (auto) 0.17 K/uL (0-0.5); Eosinophils % (auto) 1.3 %; Hemoglobin 11.7 g/dL (14.0-18.0); Immature Granulocytes # (auto) 0.05 K/uL (0.00-0.02); Immature Granulocytes % (auto) 0.4 %; Lymphocytes # (auto) 4.37 K/uL (1.2-3.4); Lymphocytes % (auto) 32.1 %; Mean Corpuscular Hemoglobin 28.5 pg (25-34); Mean Corpuscular Hgb Conc 33.4 g/dL (32-36); Mean Corpuscular Volume 85.4 fL (80-100); Mean Platelet Volume 9.3 fL (7.4-10.4); Monocytes # (auto) 0.99 K/uL (0.11-0.59); Monocytes % (auto) 7.3 %; Neutrophils # (auto) 7.99 K/uL (1.4-6.5); Neutrophils % (auto) 58.7 %; Platelet Count 356 K/uL (130-400); RDW Coefficient of Variation 12.9 % (11.5-14.5); RDW Standard Deviation 40.5 fL (36.4-46.3)
--- NOTE | 2020-05-22 19:21 | Billing Data ---
Date of Service May 22, 2020 Coding Level of Care Code 22313 OBS Care - Level 2
[2020-05-22] MEDS: CIPROFLOXACIN / D5W 200 MG/100 ML BAG IV SCH (21:02)
[2020-05-23 01:07] LABS: Basophils # (auto) 0.04 K/uL (0-0.2); Basophils % (auto) 0.3 %; Eosinophils # (auto) 0.16 K/uL (0-0.5); Eosinophils % (auto) 1.3 %; Hematocrit (blood only) 30.3 % (42-52); Hemoglobin 10.1 g/dL (14.0-18.0); Immature Granulocytes # (auto) 0.04 K/uL (0.00-0.02); Immature Granulocytes % (auto) 0.3 %; Lymphocytes # (auto) 2.84 K/uL (1.2-3.4); Lymphocytes % (auto) 23.8 %; Mean Corpuscular Hemoglobin 28.5 pg (25-34); Mean Corpuscular Hgb Conc 33.3 g/dL (32-36); Mean Corpuscular Volume 85.4 fL (80-100); Mean Platelet Volume 9.2 fL (7.4-10.4); Monocytes % (auto) 8.4 %; Neutrophils # (auto) 7.85 K/uL (1.4-6.5); Neutrophils % (auto) 65.9 %; Platelet Count 305 K/uL (130-400); RDW Standard Deviation 40.2 fL (36.4-46.3); Red Blood Count 3.55 M/uL (4.7-6.1); White Blood Count 11.93 K/uL (4.8-10.8)
[2020-05-23] MEDS: metroNIDAZOLE 500 MG/100 ML BAG IV SCH ×3 (05:08→20:13)
[2020-05-23] MEDS: NSS + 20MEQ KCL 20 MEQ/1,000 ML BAG IV SCH (05:30)
--- NOTE | 2020-05-23 08:18 | Medical Student Progress Note ---
Date of Service May 23, 2020 Assessment & Plan (1) Hematochezia: Patient is a 49 year old male with PMHx of left colon diverticulosis currently on HOD0 after presenting following an episode of painless lower G.I bleed. Patient had a similar episode on 05-20-2020 which resolved without inter vention Painless Lower G.I Bleed Acute blood loss anemia - Patient is presenting after experiencing a second episode of painless lower G.I bleed within 3 days. - Patient acknowledges a history of colonic diverticula from a colonoscopy 8 years ago. - Colonoscopy also extracted 2 polyps and patient was scheduled for follow-up in 10 years. - CT Ab/Pelvis showed mild left colonic diverticula. Equivocal on presence of inflammation. - Hgb is 12.8 g/dL, down from 15.0 g/dL on Wednesday. IV Fluids have been started NSS + 20meq KCL 100ml/hr. Will start clear liquid diet. PPIs are not indicated because of lower G.I Bleed. Recheck H&H every 4-6 hours to monitor CBC trends. - GI consulted - For colonoscopy in 8 wks. Treat for diverticulitis. Diverticulitis CT with equivocal on presence of inflammation. IV Ciprofloxacin and Metronidazole have been started for possible diverticulitis. Follow-up outpatient with PCP and colonoscopy in 8 weeks. Dispo: Med/Surg telemetry for closer monitoring of HR ad BP as signs of worsening bleed. FEN: Clear Liquid Diet, NSS +20meqKCl 100ml/hr x2L . DVT: Ambulatory Code: Full Admission and Anticipated Discharge Date Admission Date: May 22, 2020 Subjective Patient is a 49 year old male currently on HOD0 after presenting to the emergency room with painless lower G.I Bleed. Patient states being in his usual state of health until Wednesday05-20-2020 when he went to use the bathroom and notice that his stool was soft and grossly bloody. Patient states that he had 2 subsequent bowel movements which were also bloody which prompted him to call his significant other to drive him to the emergency room. He states that the bleeding persisted in the car and on the way to the emergency room but ceased once the patient was seen by a physician. The patient was given fluids and subsequently discharged with no work-up. Yesterday at midnight, patient states that the bleeding reoccurred after he went to the bathroom to have a bowel movement. His stool was once again bright red and soft. This episode of bleeding was accompanied by mild LLQ pain. This prompted the patient to come the emergency room. At the ER, a CT scan was ordered which showed evidence of left colon diverticulosis. Patient does acknowledge that a colonoscopy done 8 years ago showed evidence of diverticulosis but prior to Wednesday, he never had a bleeding episode. However, he does acknowledge prior flares of diverticulitis causing him LLQ pain. Since admission, patient has not experienced any bloody bowel movements. ROS: Patient denies any headache, fever, chest pain, shortness of breath, dysuria, hematuria, pneumaturia, hematemesis, hemoptysis, constipation, diarrhea, change in stool caliber, weight loss Physical Exam Constitutional: WD/WN, vitals as above Eyes: PERRL, conjunctivae normal, anicteric sclerae ENMT: external ear and nose normal, oropharynx normal Respiratory: normal respiratory effort, lungs clear to auscultation Cardiovascular: RRR, no murmur, no edema Gastrointestinal (Abdomen): normal bowel sounds, soft, nontender, no hepatosplenomegaly Musculoskeletal: no cyanosis or clubbing, extremities motor strength 5/5 Skin: no rashes, warm and dry Neurologic: PERRL, EOMI, accommodation nl, no face palsy, no dysarthria Results & Data ([facility]) Vital Signs (Past 12 Hours) Vital Signs Temp Pulse Pulse Resp BP BP Pulse Ox 05/23/20 07:41 36.5 C 77 16 108/73 96 05/23/20 03:12 36.6 C 76 18 127/84 97 05/23/20 00:34 80 05/22/20 23:02 36.9 C 82 18 119/74 98
--- NOTE | 2020-05-23 08:28 | Medical Student Progress Note ---
Date of Service May 23, 2020 Assessment & Plan (1) Hematochezia: Admission and Anticipated Discharge Date Admission Date: May 22, 2020 Subjective Patient is a 49 y/o M with a PMHx of colonic diverticula currently on HOD1 after admission for lower G.I Bleed. Patient states that they are doing well have no complaints. They have been tolerating the clear liquid diet and IV antibiotics well. Patient has not experienced any abdominal pain or hannah bloody stool but does acknowledge the passage of what seems like blood clots in his stool. ROS: Patient denies any fever, headache, shortness of breath, chest pain, leg pain, hematemesis, hemoptysis, constipation, diarrhea, hematuria or dysuria. Review of Systems Review of Systems: All systems reviewed & are unremarkable except as noted in HPI & below Physical Exam Constitutional: WD/WN, vitals as above well developed Eyes: PERRL, conjunctivae normal, anicteric sclerae ENMT: external ear and nose normal, oropharynx normal Respiratory: normal respiratory effort, lungs clear to auscultation Cardiovascular: RRR, no murmur, no edema Gastrointestinal (Abdomen): normal bowel sounds, soft, nontender, no hepatosplenomegaly Musculoskeletal: no cyanosis or clubbing, extremities motor strength 5/5 Skin: no rashes, warm and dry Neurologic: PERRL, EOMI, accommodation nl, no face palsy, no dysarthria Results & Data ([facility]) Vital Signs (Past 12 Hours) Vital Signs Temp Pulse Pulse Resp BP BP Pulse Ox 05/23/20 07:41 36.5 C 77 16 108/73 96 05/23/20 03:12 36.6 C 76 18 127/84 97 05/23/20 00:34 80 05/22/20 23:02 36.9 C 82 18 119/74 98
[2020-05-23] MEDS: CIPROFLOXACIN / D5W 200 MG/100 ML BAG IV SCH ×2 (09:11→21:15)
[2020-05-23 10:46] LABS: Hematocrit (blood only) 29.8 % (42-52)
--- NOTE | 2020-05-23 14:32 | Med Student Discharge Summary ---
Date of Service May 23, 2020 Discharge Data Consultations 05/22/20 07:27 Consult Gastroenterology Routine Hospital Course (1) Hematochezia: Discharge Plan Discharge Items Patient Disposition: Home - Self-Care Reason For Visit: LOWER GI BLEED Discharge Diagnosis: Acute blood loss anemia, diverticulitis Activity: Resume your previous activity Non-emergency contact: Primary Care Provider Call non-emergency contact if: your symptoms worsen Follow-up/Referrals: PCP,NO [Primary Care Provider] - Diet: Regular Addtl Attending Provider Instructions: You were admitted to the hospital for lower GI bleed and acute blood loss anemia, suspected to be due to diverticulitis. You were treated with IV antibiotics. A discharge summary will be sent to your primary care physician to ensure continuity of care. Please bring this discharge summary with you to your next office appointment so that your provider can review it at that time. Follow-up appointments: - You have an appointment on 05/31 at 3:10pm with Dr. Jony Huang at the [facility] clinic on the second floor of [address] [place] [address] (right across the parking lot from [facility]) in [place]. If you are unable to make this appointment or need to reschedule, please let us know - we will try to be as flexible as possible. The clinic phone number is [phone]. - On May 27, you need to have a CBC drawn at the clinic lab (same location as above). The order has already been placed. Come to the clinic any time between 8am and 3:30pm to have that drawn. Dr. Huang will call you with the results. - We also recommend having a colonoscopy in about [address] Huang can help you arrange this. - Keep all your follow-up appointments as already scheduled. If you cannot make an appointment, notify your provider. Medications: - Your medication list has been reviewed and reconciled upon discharge to ensure accuracy and continuity of care. - You are provided with a list of all your current medications at this time. Please review this list closely and make note of any changes. - Please take all of your medications exactly as prescribed. * You have been prescribed an antibiotic called ciprofloxacin (500mg tablets). Take ciprofloxacin one tablet twice daily for 8 more days. - On 05/23 in the evening, take one tablet of ciprofloxacin. - From 05/24 to 05/31, take ciprofloxacin one tablet twice daily. - On 06/01, stop taking ciprofloxacin. * You have been prescribed another antibiotic called metronidazole (500mg tablets). Take metronidazole one tablet three times daily for 8 more days. - On 05/23 in the evening, take one tablet of metronidazole. - From 05/24 to 05/31, take metronidazole one tablet three times daily. - On 06/01, stop taking metronidazole. - Tell your primary care provider if you cannot afford your medications. - Call your primary care provider if you are having any side effects or any other problems. - Call your primary care provider before taking any over the counter medications or supplements, including herbals and vitamins, because some of these may interact with your current medications and/or make your symptoms worse. Diet: Some patients find it easier to start with liquids (soup, broth, smoothies) before advancing to softer foods, and then later resuming a regular diet, but medically, it is safe for you to resume a regular diet now. Feel free to advance your diet as tolerated. If you have any questions, please call your PCP. CONTACT YOUR PRIMARY CARE PROVIDER if you experience any of the following: -weakness or fatigue -intermittent rectal bleeding -ongoing blood or dark stools -shortness of breath -feeling tired with normal activity or experiencing dizziness or fainting -trouble sleeping or waking up feeling short of breath or coughing -chest pain or pressure -inability to take medications or follow treatment plan CALL 911 OR GO TO THE EMERGENCY DEPARTMENT if you experience any of the following: -bleeding that does not stop -sudden chest pain, or chest pain that radiates (moves) to your jaw or arm -sudden or severe shortness of breath -sudden onset nausea, vomiting, lightheadedness Thank you for allowing us to participate in your care. Pending Studies at Discharge: No Stand-Alone Forms: My [employer], Smoking Cessation Medications and DC Order Prescriptions: New ciprofloxacin HCl 500 mg tablet 500 mg PO BID Qty: 15 RF: 0 metronidazole 500 mg tablet 500 mg PO TID Qty: 22 RF: 0 Discontinued ibuprofen 200 mg Tablet 400 mg PO DIRECTED PRN (Reason: Pain) RF: 0 Discharge Orders: Discharge Order (Routine); Ordered 05/23/20 Ordered By: Jony Huang Admission Data Admit Date/Time: 05/22/20 03:03 Attending Provider: Nicki Lane Admit Provider: Conrad Hines Primary Care Provider: PCP,NO Other Providers: Shey Pham ; Corky Vera
--- NOTE | 2020-05-23 14:38 | Discharge Summary ---
Date of Service May 23, 2020 Admission HPI Per Admitting Provider Patient is a 49 year old male with PMHx diverticulitis who presents after 1 hour history of bright red blood per rectum. Of note, patient had presented on 05/20/20 with similar concerns, however, the bleeding at that time had stopped and it was felt that patient was stable enough to go home with plans to have an appointment with GI on 05/22/20 at 9:30AM. Patient notes that since he was last seen in the ED he had no issues until midnight tonight where he felt that he was about to have diarrhea. He notes that he had roughly 4-5 bowel movements all consisting of bright red blood. Patient then immediately presented to the ED instead of waiting for his appointment later this day for evaluation. Since he has been in the hospital, he has not had any further bleeding per rectum. He notes that prior to the bloody bowel movements he did have some lower L quadrant abdominal pain, however, that has also resolved. Currently patient notes that he feels well and is without fever, chills, SOB, chest pain, abdominal pain, dy suria, hematuria. He does note the recent history of hematochezia. Admission Exam (Per Admitting) Constitutional WD/WN, vitals as above Eyes PERRL, conjunctivae normal, anicteric sclerae ENMT external ear and nose normal, oropharynx normal Neck normal visual inspection Respiratory normal respiratory effort, lungs clear to auscultation normal respiratory effort Cardiovascular RRR, no murmur, no edema Gastrointestinal (Abdomen) normal bowel sounds, soft, nontender, no hepatosplenomegaly Musculoskeletal no cyanosis or clubbing, extremities motor strength 5/5 Skin no rashes, warm and dry Neurologic PERRL, EOMI, accommodation nl, no face palsy, no dysarthria Psychiatric A+Ox3, euthymic affect Discharge Data Consultations 05/22/20 07:27 Consult Gastroenterology Routine Hospital Course (1) Hematochezia: Lower G.I Bleed with acute blood loss anemia - Patient presented after experiencing a second episode of painless lower G.I bleed within 3 days. - Patient acknowledges a history of colonic diverticula from a colonoscopy 8 years ago. - Colonoscopy also extracted 2 polyps and patient was scheduled for follow-up in 10 years. - CT Ab/Pelvis showed mild left colonic diverticula. Equivocal on presence of inflammation. - Patient hasn't had any new episodes of bleeding since admission. - Hgb was monitored throughout hospital course. Down trended from 12.1 to 10.0 at the most recent check IV Fluids were given NSS + 20meq KCL 100ml/hr. Patient was initially NPO before being converted to a clear liquid diet.. PPIs are not indicated because of lower G.I Bleed. Diverticulitis - WBC was monitored throughout hospital course. Downtrended from 13.60 to 11.93 - CT Abd was equivocal on presence of inflammation. - GI consulted Patient was treated IV metronidazole and ciprofloxacin. Antibiotics would be converted to oral at discharge. Colonoscopy in 6-8 wks. Follow-up outpatient with PCP on Wednesday for repeat CBC and colonoscopy in 6-8 weeks. Discharge Instructions You were admitted to the hospital for lower GI bleed and acute blood loss anemia, suspected to be due to diverticulitis. You were treated with IV antibiotics. A discharge summary will be sent to your primary care physician to ensure continuity of care. Please bring this discharge summary with you to your next office appointment so that your provider can review it at that time. Follow-up appointments: - You have an appointment on 05/31 at 3:10pm with Dr. Jony Huang at the [facility] clinic on the second floor of [address] [place] [address] (right across the parking lot from [facility]) in [place]. If you are unable to make this appointment or need to reschedule, please let us know - we will try to be as flexible as possible. The clinic phone number is [phone]. - On May 27, you need to have a CBC drawn at the clinic lab (same location as above). The order has already been placed. Come to the clinic any time between 8am and 3:30pm to have that drawn. Dr. Huang will call you with the results. - We also recommend having a colonoscopy in about [address] Huang can help you arrange this. - Keep all your follow-up appointments as already scheduled. If you cannot make an appointment, notify your provider. Medications: - Your medication list has been reviewed and reconciled upon discharge to ensure accuracy and continuity of care. - You are provided with a list of all your current medications at this time. Homer shen review this list closely and make note of any changes. - Please take all of your medications exactly as prescribed. * You have been prescribed an antibiotic called ciprofloxacin (500mg tablets). Take ciprofloxacin one tablet twice daily for 8 more days. - On 05/23 in the evening, take one tablet of ciprofloxacin. - From 05/24 to 05/31, take ciprofloxacin one tablet twice daily. - On 06/01, stop taking ciprofloxacin. * You have been prescribed another antibiotic called metronidazole (500mg tablets). Take metronidazole one tablet three times daily for 8 more days. - On 05/23 in the evening, take one tablet of metronidazole. - From 05/24 to 05/31, take metronidazole one tablet three times daily. - On 06/01, stop taking metronidazole. - Tell your primary care provider if you cannot afford your medications. - Call your primary care provider if you are having any side effects or any ot her problems. - Call your primary care provider before taking any over the counter medications or supplements, including herbals and vitamins, because some of these may interact with your current medications and/or make your symptoms worse. Diet: Some patients find it easier to start with liquids (soup, broth, smoothies) before advancing to softer foods, and then later resuming a regular diet, but medically, it is safe for you to resume a regular diet now. Feel free to advance your diet as tolerated. If you have any questions, please call your PCP. CONTACT YOUR PRIMARY CARE PROVIDER if you experience any of the following: -weakness or fatigue -intermittent rectal bleeding -ongoing blood or dark stools -shortness of breath -feeling tired with normal activity or experiencing dizziness or fainting -trouble sleeping or waking up feeling short of breath or coughing -chest pain or pressure -inability to take medications or follow treatment plan CALL 911 OR GO TO THE EMERGENCY DEPARTMENT if you experience any of the following: -bleeding that does not stop -sudden chest pain, or chest pain that radiates (moves) to your jaw or arm -sudden or severe shortness of breath -sudden onset nausea, vomiting, lightheadedness Thank you for allowing us to participate in your care.
--- NOTE | 2020-05-23 17:50 | Hospitalist Progress Note ---
Date of Service May 23, 2020 Assessment & Plan (1) Hematochezia: Patient is a 49 year old male with a PMH of diverticulitis who presented to the ED with a 1hr history of bright red blood per rectum. Of note, patient had presented on 05/20/20 with similar concerns, however, the bleeding at that time had stopped and it was felt that patient was stable enough to go home with plans to have an appointment with GI on 05/22/20. Lower GI bleed -05/20: Initial presentation to the ED * Hgb 14.5 * Symptoms resolved, patient was discharged without being admitted -05/22: Patient re-presented to ED with a new episode of BRBPR and Hgb 12.1 * Admitted to med/surg * CT concerning for diverticulitis in descending colon * Patient had small-volume melena x1, otherwise asymptomatic * Hgb relatively stable throughout the day (12.1 to 11.7) -05/23: Hgb at 01:00 was 10.1 (drop of 1.6 from prior evening) but this stayed stable through morning and afternoon * asymptomatic until late evening - patient had large, liquid, frankly bloody BM associated with sudden-onset tachycardia, nausea, pallor, diaphoresis, and mild LLQ tenderness * Symptoms quickly resolved, low suspicion for ongoing large-volume GI bleed * Discharge delayed, decided to observe patient overnight -serial h/h ordered -patient consented for blood if Hgb <7, may see slight drop due to dilutional effects from IVF -continue IV metronidazole and ciprofloxacin -clear liquid diet only -NSS +20meq KCl 100ml/hr Dispo: med/surg telemetry for close monitoring of HR FENGI: clear liquid diet, NSS+KCl 20mEq @ 100ml/hr DVT: SCDs, chemoprophylaxis contraindicated Code: full Admission and Anticipated Discharge Date Admission Date: May 22, 2020 Supervising Physician Co-Signing Physician Notes Resident Physician Supervision Note: I independently interviewed and examined the patient and verified the granados history and physical, reviewed labs and image studies, discussed the case with the resident Dr. Huang and agree with the findings and care plan. Subjective Patient seen this morning - feels well, has not had a BM since last night around 8pm. That BM was small, dark, and tarry. Denies abdominal pain, nausea, vomit ing, fever, chills, dizziness. No new concerns or complaints, eager for discharge. Update - while patient was getting ready to leave and be discharged, nursing paged me to come to the room and told me patient had a large bloody BM and afterwards became pale, diaphoretic, and tachycardic to the 130s while walking back to his bed. Patient reports he had no symptoms before the BM, but when he realized the BM was blood, he became dizzy and nauseous. Did not vomit. Patient was able to ambulate back to bed. Symptoms completely resolved after a few minutes of laying down. Exam at this time was benign other than very mild LLQ tenderness; no abdominal tenderness otherwise, BS normoactive, HR was 84, BP was 143/81. Discussed with attending, and we will observe patient for another night while rechecking a CBC. Patient agreeable. Review of Systems Review of Systems: See HPI Physical Exam Physical Exam: Well-appearing, NAD, laying in bed Mucous membranes moist CV regular rhythm, no murmur Resp CTABL Abdomen soft, nontender, nondistended (repeat examination in the late afternoon noted in HPI) Results & Data Results & Data ([facility]) Vital Signs (Past 12 Hours) Vital Signs Temp Pulse Pulse Resp BP BP Pulse Ox 05/23/20 14:50 36.7 C 99 H 18 143/81 H 98 05/23/20 14:40 36.7 C 78 16 135/78 127/84 97 05/23/20 14:00 74 05/23/20 11:48 36.7 C 78 16 135/78 97 05/23/20 07:41 36.5 C 77 16 108/73 96 Resident Activity Tracking Resident Involvement: Resident Care Provided Care Provided: Adult Hospital Medicine
[2020-05-23 21:16] LABS: Hematocrit (blood only) 25.8 % (42-52); Hemoglobin 8.8 g/dL (14.0-18.0)
[2020-05-24 03:20] LABS: Hematocrit (blood only) 25.8 % (42-52); Hemoglobin 8.8 g/dL (14.0-18.0)
[2020-05-24] MEDS: metroNIDAZOLE 500 MG/100 ML BAG IV SCH ×3 (04:10→20:47)
[2020-05-24] MEDS: CIPROFLOXACIN / D5W 200 MG/100 ML BAG IV SCH ×2 (08:44→21:53)
--- NOTE | 2020-05-24 08:50 | Medical Student Progress Note ---
Date of Service May 24, 2020 Assessment & Plan (1) Hematochezia: Lower G.I Bleed with acute blood loss anemia - Patient experienced another episode of painless hannah lower G.I bleed yesterday prior to discharge. - No other bleeding episodes since then ? - Hgb is ..., down from ... yesterday IV Fluids were given NSS + 20meq KCL 100ml/hr. Patient was initially NPO before being converted to a clear liquid diet.. PPIs are not indicated because of lower G.I Bleed. Recheck H&H q6 hours Consider discharge in 24 hours with follow up with PCP on Wednesday Diverticulitis - Patient is still experiencing LLQ pain. - WBCs is ..., down from 11.93 yesterday. - CT Abd was equivocal on presence of inflammation. - GI consulted Patient was treated IV metronidazole and ciprofloxacin. Antibiotics would be converted to oral at discharge. Colonoscopy in 6-8 wks. Follow-up outpatient with PCP on Wednesday for repeat CBC and colonoscopy in 6-8 weeks. Admission and Anticipated Discharge Date Admission Date: May 22, 2020 Subjective Patient seen this morning - feels well, has not had a BM since last night around 8pm. That BM was small, dark, and tarry. Denies abdominal pain, nausea, vomiting, fever, chills, dizziness. No new concerns or complaints, eager for discharge. Update - while patient was getting ready to leave and be discharged, nursing paged me to come to the room and told me patient had a large bloody BM and afterwards became pale, diaphoretic, and tachycardic to the 130s while walking back to his bed. Patient reports he had no symptoms before the BM, but when he realized the BM was blood, he became dizzy and nauseous. Did not vomit. Patient was able to ambulate back to bed. Symptoms completely resolved after a few minutes of laying down. Exam at this time was benign other than very mild LLQ tenderness; no abdominal tenderness otherwise, BS normoactive, HR was 84, BP was 143/81. Discussed with attending, and we will observe patient for another night while rechecking a CBC. Patient agreeable. Physical Exam Constitutional: WD/WN, vitals as above Eyes: PERRL, conjunctivae normal, anicteric sclerae ENMT: external ear and nose normal, oropharynx normal Neck: normal visual inspection Respiratory: normal respiratory effort, lungs clear to auscultation normal respiratory effort Cardiovascular: RRR, no murmur, no edema Gastrointestinal (Abdomen): normal bowel sounds, soft, nontender, no hepatosplenomegaly Musculoskeletal: no cyanosis or clubbing, extremities motor strength 5/5 Skin: no rashes, warm and dry Neurologic: PERRL, EOMI, accommodation nl, no face palsy, no dysarthria Psychiatric: A+Ox3, euthymic affect Results & Data ([facility]) Vital Signs (Past 12 Hours) Vital Signs Temp Pulse Pulse Resp BP Pulse Ox 05/24/20 07:43 36.9 C 81 16 130/78 98 05/24/20 03:00 36.7 C 83 20 134/77 96 05/24/20 00:35 86 05/23/20 23:00 37 C 79 18 145/88 H 99 05/23/20 22:08 85 148/83 H
--- NOTE | 2020-05-24 08:57 | Medical Student Progress Note ---
Date of Service May 24, 2020 Assessment & Plan (1) Hematochezia: Patient is a 49 y/o M with a PMHx of colonic diverticula currently on HOD3 for painless lower G.I Bleed. Prior to discharge yesterday, patient experienced another episode of painless bloody stools as well as LLQ pain. Patient accepted to stay for another 24 hours on the hospital floor for monitoring. Lower G.I Bleed with acute blood loss anemia - Patient experienced another episode of painless hannah lower G.I bleed yesterday prior to discharge. - No other bleeding episodes since then ? - Prior to his bleed, Hgb was 10.0. Post-bleed Hgb was 8.8 and the most recent Hgb is 8.8 - Prior to his bleed, Hct was 29.0. Post-bleed Hct was 25.8 and the most recent Hct is 25.8 NSS + 20meq KCL 100ml/hr should be continued PPIs are not indicated because of lower G.I Bleed. Recheck H&H q6 hours Consider discharge in 24 hours with follow up with PCP on Wednesday Diverticulitis - Patient is still experiencing LLQ pain. - CT Abd was equivocal on presence of inflammation. - GI consulted Patient was treated IV metronidazole and ciprofloxacin. Antibiotics would be converted to oral at discharge. Measure WBCs. Colonoscopy in 6-8 wks. Follow-up outpatient with PCP on Wednesday for repeat CBC and colonoscopy in 6-8 weeks. Dispo: Monitor H&H for 24 hours and consider discharge in 24 hours FEN: NSS + 20 meq KCL 80ml/hr x3. Electrolytes are normal. Clear Liquid Diet DVT Status: Code: Full Admission and Anticipated Discharge Date Admission Date: May 22, 2020 Subjective Patient is a 49 y/o M currently on HOD3 for painless lower G.I Bleed. Prior to discharge yesterday, patient experienced another episode of painless bloody stools. He states he felt midly dizzy after the episode and had to lie down in his bed. Since then, he hasn't had another bleeding episode. Patient acknowle dges feeling tired and fatigued, although he attributes this to sleeping poorly due to the overnight noise in the hospital. His LLQ pain has also returned albeit milder than his prior flares. ROS: Patient denies any headache, chest pain, SOB, dyspnea, constipation, Review of Systems Review of Systems: All systems reviewed & are unremarkable except as noted in HPI & below Physical Exam Constitutional: WD/WN, vitals as above Eyes: PERRL, conjunctivae normal, anicteric sclerae ENMT: external ear and nose normal, oropharynx normal Respiratory: normal respiratory effort, lungs clear to auscultation Cardiovascular: RRR, no murmur, no edema Gastrointestinal (Abdomen): normal bowel sounds, soft, nontender, no hepatosplenomegaly Musculoskeletal: no cyanosis or clubbing, extremities motor strength 5/5 Skin: no rashes, warm and dry Neurologic: PERRL, EOMI, accommodation nl, no face palsy, no dysarthria Results & Data ([facility]) Vital Signs (Past 12 Hours) Vital Signs Temp Pulse Pulse Resp BP Pulse Ox 05/24/20 07:43 36.9 C 81 16 130/78 98 05/24/20 03:00 36.7 C 83 20 134/77 96 05/24/20 00:35 86 05/23/20 23:00 37 C 79 18 145/88 H 99 05/23/20 22:08 85 148/83 H
--- NOTE | 2020-05-24 09:24 | Communication Note ---
Date of Service: May 24, 2020 We were notified by primary service that patient's H/H declined to 8.8/25.8 today after an episode last night during which time the patient had a large, blo elizabeth bowel movement. Given the initial CT concern for diverticulitis, would hold off on colonoscopy due to increased risk of perforation. I would obtain a CT scan of the abdomen/pelvis with po & IV contrast as the original study was not enhanced with oral contrast. Further recommendations and evaluation will be made based on that result. Agree with TANNER Vogel as above Colonoscopy is relatively contraindicated in case of acute diverticulitis. Will await f/u CT scan abd/pelvis with PO contrast Further recommendations to follow
--- NOTE | 2020-05-24 10:01 | Hospitalist Progress Note ---
Date of Service May 24, 2020 Assessment & Plan (1) Hematochezia: Patient is a 49 year old male with a PMH of diverticulitis who presented to the ED with a 1hr history of bright red blood per rectum. Of note, patient had presented on 05/20/20 with similar concerns, however, the bleeding at that time had stopped and it was felt that patient was stable enough to go home with plans to have an appointment with GI on 05/22/20. Lower GI bleed Acute blood loss anemia -05/20: Initial presentation to the ED -05/22: Patient re-presented to ED with a new episode of BRBPR and Hgb 12.1 * Admitted to med/surg * CT concerning for diverticulitis in descending colon * Patient had small-volume melena x1, otherwise asymptomatic * Hgb relatively stable throughout the day (12.1 to 11.7) -05/23: Hgb at 01:00 was 10.1 (drop of 1.6 from prior evening) but this stayed stable through morning and afternoon * asymptomatic until late evening - patient had large, liquid, frankly bloody BM associated with sudden-onset tachycardia, nausea, pallor, diaphoresis, and mild LLQ tenderness * Symptoms quickly resolved, low suspicion for ongoing large-volume GI bleed -05/24: Hgb late last night 8.8, repeat this morning 8.8. Spoke with GI, will proceed with CT abdomen/pelvis with oral and IV contrast * At noon, repeat episode of BRBPR (see HPI), now symptomatic at rest (dizziness) * Transfusion of 1u pRBC - started around 13:00 * Per GI: stool culture and gram stain; colonoscopy early next week if patient is hemodynamically stable and without other explanation for blood loss * Will consider C. diff if patient develops diarrhea -patient consented for blood if Hgb<7, or Hgb<8 and symptomatic -continue IV metronidazole and ciprofloxacin -clear liquid diet only -NSS +20meq KCl 100ml/hr Dispo: med/surg telemetry for close monitoring of HR FENGI: clear liquid diet, NSS+KCl 20mEq @ 100ml/hr DVT: SCDs, chemoprophylaxis contraindicated Code: full Admission and Anticipated Discharge Date Admission Date: May 22, 2020 Supervising Physician Co-Signing Physician Notes Resident Physician Supervision Note: I independently interviewed and examined the patient and verified the granados history and physical, reviewed labs and image studies, discussed the case with the resident Dr. Huang and agree with the findings and care plan. Subjective Feels well today. One episode of small-volume melena this morning, patient reports no noticeable bleeding. Denies nausea, vomiting, CP, SOB. Very mild LLQ discomfort. No new concerns. Around noon, received a page from nursing to come to the room - patient felt dizzy upon getting up to use the restroom, was unable to make it, and had a large BM in bed of hannah bright red blood. Became tachycardic to 150s. Upon my arrival to the room, patient was laying in bed, still dizzy and short of breath but without other symptoms including abdominal pain, nausea, vomiting, or CP. Ordered stat Hgb which came back 8.2. Transport arrived at that time for patient to go to CT as previously planned. Ordered 1u pRBC to begin upon returning from CT. CT came back without signs of diverticulitis. GI was contacted, their plan is to run a stool culture and gram stain (and C diff if patient had diarrhea - this was not ordered as patient has not had diarrhea). GI wants to observe over the weekend and will consider if stool testing is negative, if there are no further findings to explain patient's bleeding, and if he remains hemodynamically stable. Review of Systems Review of Systems: See HPI Physical Exam Physical Exam: Well-appearing, NAD, laying in bed, comfortable Mucous membranes moist CV regular rhythm, no murmur Resp CTABL Abdomen soft, nontender though with mild "discomfort" to palpation of LLQ, nondistended, BS present Results & Data Results & Data ([facility]) Vital Signs (Past 12 Hours) Vital Signs Temp Pulse Pulse Resp BP Pulse Ox 05/24/20 07:43 36.9 C 81 16 130/78 98 05/24/20 07:30 71 05/24/20 03:00 36.7 C 83 20 134/77 96 05/24/20 00:35 86 05/23/20 23:00 37 C 79 18 145/88 H 99 05/23/20 22:08 85 148/83 H Resident Activity Tracking Resident Involvement: Resident Care Provided Care Provided: Adult [facility] Medicine
[2020-05-24 11:06] LABS: BUN Creatinine Ratio 9.3 (10-20); Calcium 7.9 mg/dl (8.5-10.1); Creatinine Clr Calc Pharmacy 89.5 ml/min; Est GFR (African American) 81.6; Est GFR (Non-African American) 70.4; Potassium 3.7 mmol/L (3.5-5.1)
[2020-05-24] MEDS ORDERED: OPTIRAY 320 100ml IV ONE (12:27)
[2020-05-24 12:28] LABS: Basophils # (auto) 0.05 K/uL (0-0.2); Basophils % (auto) 0.4 %; Eosinophils # (auto) 0.27 K/uL (0-0.5); Hematocrit (blood only) 24.1 % (42-52); Hemoglobin 8.2 g/dL (14.0-18.0); Immature Granulocytes # (auto) 0.08 K/uL (0.00-0.02); Immature Granulocytes % (auto) 0.6 %; Lymphocytes # (auto) 2.67 K/uL (1.2-3.4); Lymphocytes % (auto) 19.7 %; Mean Corpuscular Volume 85.2 fL (80-100); Mean Platelet Volume 8.8 fL (7.4-10.4); Monocytes # (auto) 1.33 K/uL (0.11-0.59); Monocytes % (auto) 9.8 %; Neutrophils # (auto) 9.13 K/uL (1.4-6.5); Neutrophils % (auto) 67.5 %; Platelet Count 348 K/uL (130-400); RDW Coefficient of Variation 12.9 % (11.5-14.5); RDW Standard Deviation 40.2 fL (36.4-46.3); Red Blood Count 2.83 M/uL (4.7-6.1); White Blood Count 13.53 K/uL (4.8-10.8)
[2020-05-24 12:47] LABS: Albumin Level 2.8 gm/dl (3.4-5.0); BUN Creatinine Ratio 8.6 (10-20); Calcium 7.9 mg/dl (8.5-10.1); Creatinine Clr Calc Pharmacy 79.6 ml/min; Est GFR (African American) 70.8; Est GFR (Non-African American) 61.1; Potassium 3.6 mmol/L (3.5-5.1)
[2020-05-24 12:50] LABS: Albumin Globulin Ratio 0.9 (0.9-2); Bilirubin,Total 0.4 mg/dl (0.2-1); Total Protein 5.8 gm/dl (6.4-8.2)
[2020-05-24] MEDS ORDERED: SODIUM CHLORIDE 0.9% 250 ML IV PRN ×2 (12:51→12:59)
--- NOTE | 2020-05-24 13:23 | CT Scan Report ---
ABDOMEN AND PELVIS CT WITH IV AND ORAL CONTRAST CT DOSE: 1077.36 mGycm HISTORY: acute blood loss anemia, diverticulitis TECHNIQUE: Multiaxial CT images of the abdomen and pelvis were performed following the use of intrave nous and oral contrast. A dose lowering technique was utilized adhering to the principles of ALARA. COMPARISON STUDY: Abdomen and pelvis CT 05/22/2020. FINDINGS: The lung bases are clear. No pneumoperitoneum. No pneumatosis. No fractures within the visu alized osseous structures. Tiny fat-containing umbilical hernia. Hepatic steatosis. The spleen, adren al glands, gallbladder, and pancreas are unremarkable. No hydronephrosis. Small left peripelvic renal cysts, unchanged. Normal caliber abdominal aorta. The main portal vein is patent. No retroperitoneal lymphadenopathy. The bladder is unremarkable. No pelvic free fluid. Fluid-filled nondilated colon. C olonic diverticulosis. No evidence for acute diverticulitis. No bowel wall thickening or obstruction. The appendix is surgically absent. IMPRESSION: 1. Fluid-filled nondilated colon. This could be seen in the setting of a gastroenteritis/diarrheal il lness. 2. No bowel wall thickening or obstruction. 3. Colonic diverticulosis. No evidence for acute diverticulitis. ACT 112: Negative or not required by law. Electronically signed by: Sharan Kennedy M.D. 05/24/2020 1:21 PM
[2020-05-24] MEDS: PANTOprazole 40 MG in SYRINGE 0 ML IV SCH ×2 (13:30→21:47)
[2020-05-24 17:52] LABS: Hematocrit (blood only) 27.2 % (42-52); Hemoglobin 9.2 g/dL (14.0-18.0)
[2020-05-24 23:07] LABS: Hematocrit (blood only) 25.1 % (42-52); Hemoglobin 8.7 g/dL (14.0-18.0)
[2020-05-25] MEDS: metroNIDAZOLE 500 MG/100 ML BAG IV SCH ×3 (03:46→20:01)
[2020-05-25 05:17] LABS: Hematocrit (blood only) 26.4 % (42-52)
--- NOTE | 2020-05-25 07:21 | Hospitalist Progress Note ---
Date of Service May 25, 2020 Assessment & Plan (1) Hematochezia: Patient is a 49 year old male with a PMH of diverticulitis who presented to the ED with a 1hr history of bright red blood per rectum. Of note, patient had presented on 05/20/20 with similar concerns, however, the bleeding at that time had stopped and it was felt that patient was stable enough to go home with plans to have an appointment with GI on 05/22/20. Lower GI bleed Acute blood loss anemia. -GI consulted Started on IV cipro/flagyl for concern of diverticulitis Stool culture/gram stain ordered. No diarrhea. -Repeat CT abd/pelvis w IV/Oral contrast with no sign of diverticulitis. -Recurrent rectal bleeding. Transfused 1 units of PRBC. H/h stable. -05/25: Hgb stable throughout the day, one small BM which was melena, no hannah bleeding as of 18:00 -patient consented for blood if Hgb<7, or Hgb<8 and symptomatic -continue IV metronidazole and ciprofloxacin -clear liquid diet only -NSS +20meq KCl 100ml/hr Dispo: med/surg telemetry for close monitoring of HR FENGI: clear liquid diet, NSS+KCl 20mEq @ 100ml/hr DVT: SCDs, chemoprophylaxis contraindicated Code: full Admission and Anticipated Discharge Date Admission Date: May 24, 2020 Supervising Physician Co-Signing Physician Notes Resident Physician Supervision Note: I independently interviewed and examined the patient and verified the granados history and physical, reviewed labs and image studies, discussed the case with the resident Dr. Huang and agree with the findings and care plan. Subjective Patient seen at bedside today. Feels well, notes slightly worsened LLQ discomfort, but that it remains very mild and it is not bothering him. Notes one small BM today which was dark and tarry. Denies CP, SOB, lightheadedness, dizziness, palpitations, change in vision, or other symptoms. No other concerns today. Review of Systems Review of Systems: See HPI Physical Exam Physical Exam: Well-appearing, NAD, laying in bed MMM CV regular rhythm, no murmur Resp CTABL Abdomen soft, nondistended, nontender in all quadrants Results & Data Results & Data ([facility]) Vital Signs (Past 12 Hours) Vital Signs Temp Pulse Pulse Resp BP BP Pulse Ox 05/25/20 07:00 36.9 C 84 18 124/75 97 05/25/20 04:00 36.9 C 73 20 138/82 98 05/24/20 23:27 79 05/24/20 23:17 37.1 C 85 20 137/80 98 Resident Activity Tracking Resident Involvement: Resident Care Provided Care Provided: Adult Hospital Medicine
[2020-05-25] MEDS: CIPROFLOXACIN / D5W 200 MG/100 ML BAG IV SCH ×2 (09:06→21:29)
[2020-05-25] MEDS: PANTOprazole 40 MG in SYRINGE 0 ML IV SCH ×2 (09:06→21:23)
[2020-05-25 11:26] LABS: Hematocrit (blood only) 25.2 % (42-52); Hemoglobin 8.7 g/dL (14.0-18.0)
[2020-05-25 19:21] LABS: Hematocrit (blood only) 25.3 % (42-52); Hemoglobin 8.7 g/dL (14.0-18.0)
[2020-05-26] MEDS: metroNIDAZOLE 500 MG/100 ML BAG IV SCH ×3 (03:53→20:00)
--- NOTE | 2020-05-26 07:53 | Hospitalist Progress Note ---
Date of Service May 26, 2020 Assessment & Plan (1) Hematochezia: Patient is a 49 year old male with a PMH of diverticulitis who presented to the ED with a 1hr history of bright red blood per rectum. Of note, patient had presented on 05/20/20 with similar concerns, however, the bleeding at that time had stopped and it was felt that patient was stable enough to go home with plans to have an appointment with GI on 05/22/20. Lower GI bleed Acute blood loss anemia. -GI consulted Started on IV cipro/flagyl for concern of diverticulitis Stool culture/gram stain ordered. No diarrhea. Will consider colonoscopy early this week. -Repeat CT abd/pelvis w IV/Oral contrast with no sign of diverticulitis. -Recurrent rectal bleeding. Transfused 1 units of PRBC. H/h stable. -patient consented for blood if Hgb<7, or Hgb<8 and symptomatic -continue IV metronidazole and ciprofloxacin -clear liquid diet only -NSS +20meq KCl 100ml/hr Dispo: med/surg telemetry for close monitoring of HR FENGI: clear liquid diet, NSS+KCl 20mEq @ 100ml/hr DVT: SCDs, chemoprophylaxis contraindicated Code: full Admission and Anticipated Discharge Date Admission Date: May 24, 2020 Supervising Physician Co-Signing Physician Notes Resident Physician Supervision Note: I independently interviewed and examined the patient and verified the granados history and physical, reviewed labs and image studies, discussed the case with the resident Dr. Huang and agree with the findings and care plan. Subjective Patient feels well this morning, no acute events overnight, no BM previously- documented episode of melena. Denies CP, SOB, lightheadedness, dizziness, palpitations, change in vision, or other symptoms. No other concerns today. Review of Systems Review of Systems: See HPI Physical Exam Physical Exam: Well-appearing, NAD, laying in bed MMM CV regular rhythm, no murmur Resp CTABL Abdomen soft, nondistended, nontender in all quadrants Results & Data Results & Data ([facility]) Vital Signs (Past 12 Hours) Vital Signs Temp Pulse Pulse Resp BP BP Pulse Ox 05/26/20 07:00 37 C 90 20 117/73 95 05/26/20 04:00 36.9 C 89 20 134/81 96 05/26/20 00:36 85 04/10/21 23:00 37.4 C 87 20 123/71 96 Resident Activity Tracking Resident Involvement: Resident Care Provided Care Provided: Adult Hospital Medicine
[2020-05-26] MEDS: CIPROFLOXACIN / D5W 200 MG/100 ML BAG IV SCH ×2 (08:04→21:35)
[2020-05-26] MEDS: PANTOprazole 40 MG in SYRINGE 0 ML IV SCH ×2 (08:04→21:27)
[2020-05-26 08:08] LABS: Hemoglobin 8.9 g/dL (14.0-18.0)
[2020-05-26 14:21] LABS: Hematocrit (blood only) 24.1 % (42-52); Hemoglobin 8.3 g/dL (14.0-18.0)
[2020-05-26 20:35] LABS: Hematocrit (blood only) 24.8 % (42-52); Hemoglobin 8.4 g/dL (14.0-18.0)
[2020-05-27 02:38] LABS: Hematocrit (blood only) 23.5 % (42-52)
[2020-05-27] MEDS ORDERED: SODIUM CHLORIDE 0.9% 250 ML IV PRN (03:33)
[2020-05-27] MEDS: metroNIDAZOLE 500 MG/100 ML BAG IV SCH ×3 (03:42→19:42)
[2020-05-27 04:42] LABS: BUN Creatinine Ratio 9.6 (10-20); Calcium 7.5 mg/dl (8.5-10.1); Est GFR (African American) 75.5; Est GFR (Non-African American) 65.1; Potassium 3.6 mmol/L (3.5-5.1)
[2020-05-27] MEDS ORDERED: SOD PHOSPHATE/SOD BIPHOSPHATE ENEMA 132 ML BTL PR STA (09:51)
--- NOTE | 2020-05-27 09:58 | History & Physical Bridge Note ---
Date of Service May 27, 2020 History & Physical Bridge Note I have examined the patient, reviewed the History & Physical and in the interval since the performance of the History & Physical I have noted the following changes of clinical significance: H&H did drop to 8.0 today. Patient reports a mild "soreness" in the lower abdomen. Rates the pain "1.5/10". Blood with every bm, has passed 4 bms this morning. PE: A&Ox3. RRR without M/R/Gs. Lungs CTA bilaterally. Abdomen soft, hyperactive bowel sounds. Tender LLQ. A/P: Rectal bleeding. 1. Fleet enema now. Repeat in 1 hour. 2. Flex sig with Dr. Vera today. 3. Transfuse per primary team. 4. Further recommendations pending results of testing. Supervising Physician Co-Signing Physician Notes Agree with KIANA Dill as above Abd: Soft, NT, ND, +BS Continue supportive care Flex Sig today for further evaluation of bleeding and abnormal CT scan.
--- NOTE | 2020-05-27 10:45 | Hospitalist Progress Note ---
Date of Service May 27, 2020 Assessment & Plan (1) Hematochezia: Patient is a 49 year old male with a PMHx of diverticulitis who presented to the ED on 05/22/2020 with a 1hr history of bright red blood per rectum. Of note, patient had presented on 05/20/20 with similar concerns. GI following - EGD/sigmoidoscopy today. Acute GI bleed Acute blood loss anemia - Hgb 14.5 --> 8.0 over course of one week, with associated dizziness/lightheadedness, tachycardia and bright red blood per rectum - Repeat CT abd/pelvis w/ contrast with no sign of diverticulitis - Sigmoidoscopy on 05/27 without sign of active lower GI bleed - Suspect Acute GI bleed 2/2 upper source (PUD); unlikely lower source (diverticulosis vs AVM vs malignancy) given flex sig findings - EGD pending - Continue Protonix 40mg IV BID - Continue IV cipro/flagyl for concern of diverticulitis (day 6) - Recurrent bright red blood per rectum, with several episodes in the last 12 hours - S/p 2 units of pRBCs. - H/H 8.0/23.5, repeat pending - patient consented for blood if Hgb<7, or Hgb<8 and symptomatic - continue IVFs with NSS +20meq KCl 100ml/hr Dispo: med/surg with tele FENGI: NPO pending EGD today DVT: SCDs, chemoprophylaxis contraindicated due to acute GIB Code: full code Admission and Anticipated Discharge Date Admission Date: May 24, 2020 Supervising Physician Co-Signing Physician Notes I personally examined the patient and verified all granados points of history and exam, discussed case, and agree with decision making with Dr Burnham. Feeling good post colonoscopy. No further bowel movements/no further bleeding. Does not feel weak/lightheaded/dyspnea on exertion anymore. Vitals noted, in general he is awake and alert pleasant no distress. HEENT normocephalic atraumatic mucous membranes are moist. Breathing unlabored no acc essory muscle use good effort. Skin shows no rashes no pallor or icterus. Lower GI bleeding with acute blood loss anemia status post 3 units transfusionappearing more stable now. Bleeding appears clinically to have stopped, none seen actively bleeding on scope. Continue supportive care and observation. Hopefully home soon. Otherwise as above. Subjective Patient had several red/tarry BMs overnight and became more tachycardic/dizzy/lightheaded; 2units pRBCs ordered and started infusing early this morning. Patient reports that symptoms are improved since pRBCs started infusing although is still having bloody/tarry BMs every couple hours. Reports mild LLQ abdominal pain that is slightly more bothersome than when he was admitted. Denies fever/chills, chest pain, SOB, N/V. Review of Systems Review of Systems: Pertinent positives and negatives mentioned in HPI Physical Exam Physical Exam: General: A&Ox3. NAD. Cooperative. HEENT: Atraumatic, normocephalic. Pulm: CTAB A&P. -wheezes, -rales, -rhonchi. Symmetrical chest rise. No increase work of breathing. No respiratory distress. Cardiac: RRR, -mrg. Radial pulses intact and symmetrical. Abdominal: soft, non-distended, mild TTP of LLQ, NA BS x 4 Skin: warm, dry Results & Data Results & Data ([facility]) Vital Signs (Past 12 Hours) Vital Signs Temp Pulse Pulse Resp BP BP Pulse Ox 05/27/20 10:28 36.7 C 79 16 121/81 97 05/27/20 09:15 36.7 C 76 16 143/86 H 100 05/27/20 07:15 36.8 C 78 16 124/80 98 05/27/20 06:45 36.9 C 88 18 123/77 97 05/27/20 06:33 37 C 78 18 125/77 97 05/27/20 06:15 36.9 C 77 20 124/74 96 05/27/20 03:31 36.9 C 97 H 20 134/75 97 05/27/20 00:15 92 H 05/26/20 23:28 37.6 C H 93 H 20 134/80 94 Resident Activity Tracking Resident Involvement: Resident Care Provided Care Provided: Adult [facility] Medicine
[2020-05-27] MEDS ORDERED: SOD PHOSPHATE/SOD BIPHOSPHATE ENEMA 132 ML BTL PR ONE (10:52)
[2020-05-27] MEDS: PANTOprazole 40 MG in SYRINGE 0 ML IV SCH ×2 (11:09→21:01)
[2020-05-27] MEDS ORDERED: Nursing to Pharmacy Communication SCH (11:30)
[2020-05-27] MEDS: CIPROFLOXACIN / D5W 200 MG/100 ML BAG IV SCH ×2 (13:24→21:01)
--- NOTE | 2020-05-27 14:23 | Anesthesiology Consultation ---
Date of Service May 27, 2020 Assessment & Plan ASA ASA3 Proposed Anesthesia Anesthesia Type: MAC Risk / Benefits Reviewed With: PT / POA / Parent / Guardian, Accepts Plan and Informed Consent Obtained History Surgery Operation Date: 05/27/20 16:00 Proposed Procedures p Flexible Sigmoidoscopy Dr Chuy Vera, DO Height/Weight Height: 5 ft 11 in Weight: 101.7 kg Allergies Allergy/AdvReac Type Severity Reaction Status Date / Time Penicillins Allergy Unknown STRONG Verified 05/22/20 01:16 FAMILY HX ALLERGY Medications Home Medications Medication Instructions Recorded Confirmed Last Taken ciprofloxacin HCl 500 mg PO BID #15 tab 05/23/20 Unknown metronidazole 500 mg PO TID #22 tab 05/23/20 Unknown Active Medications Generic Name Dose Route Start Last Admin Trade Name Freq PRN Reason Stop Dose Admin Ciprofloxacin Lactate 200 mg in 100 mls @ 100 mls/hr 05/22/20 21:00 05/27/20 13:24 Cipro / D5w IV 06/01/20 20:59 100 mls/hr Q12 MARCOS Administration Protocol Metronidazole 500 mg in 100 mls @ 100 mls/hr 05/22/20 12:00 05/27/20 13:24 Flagyl IV 06/01/20 11:59 100 mls/hr Q8H MARCOS Administration Pantoprazole Sodium 40 mg/ 10 mls @ 5 mls/min 05/24/20 13:00 05/27/20 11:09 Syringe IV 06/23/20 12:59 5 mls/min BID MARCOS Administration Past Medical History Medical History Diverticulitis Exercise / Class Metabolic Activity II 4-5 Yardwork/Stairs/Walk up hill Past Family History Family History Mother Diverticulosis s/p colonic resection Grandfather (Paternal) Diverticulosis Past Surgical History Surgical History History of appendectomy History of vasectomy Past Anesthesia History No Hx of Anesthesia Complications and No Family Hx of Anesthesia Complications History of PONV No Hx of PONV and No Hx of Motion Sickness Social History Smoking Status: Never smoker Hx Alcohol Use: Yes alcohol intake frequency: holidays/special occasions only Hx Substance Use: No Review of Systems denies fever/cough/ colds/ chest pain/ SOB/ TOI denies TOI Physical Exam Vital Signs Last Vital Signs Temp 37.0 C 05/27/20 13:34 Pulse 84 05/27/20 13:34 Resp 16 05/27/20 13:34 BP 138/81 05/27/20 13:34 Pulse Ox 99 05/27/20 13:34 ENMT Mouth: no TMJ abnormality and no dentition abnormality Thyromental Distance: > or= 3.5 Finger Breadths Mallampati Class: II Neck neck extension not limited Respiratory normal respiratory effort; no respiratory distress Auscultation: lungs clear to auscultation bilaterally Cardiovascular Rate/Rhythm: regular rate and regular rhythm Neurologic moves all extremities Psychiatric Orientation: alert and oriented x 3 Testing Laboratory Results 05/27/20 02:30 05/27/20 04:16 PT 10.2 Seconds (9.0-12.0) 05/22/20 01:27 INR 1.0 (0.9-1.1) 05/22/20 01:27 APTT 22.2 Seconds (21.0-31.0) 05/22/20 01:27 Blood Type A Negative 05/27/20 04:16 Antibody Screen NEGATIVE 05/27/20 04:16 05/25/20 09:45 Escherichia coli Shiga Toxins Test - Preliminary Stool Stool Culture - Preliminary No Salmonella isolated to date, No Shigella isolated to date, No Campylobacter jejuni isolated to date. 05/25/20 09:45 Gram Stain - Final Stool
[2020-05-27] MEDS ORDERED: ATROPINE SULFATE 0.1 MG/ML 10ML SYR IV PRN (14:24)
[2020-05-27] MEDS ORDERED: ePHEDrine sulfate 50 MG/ML AMP IV PRN (14:24)
[2020-05-27] MEDS ORDERED: PROPOFOL IV EMULSION 10 MG/ML 20 ML VIAL IV ONE ×3 (15:00→15:47)
[2020-05-27] MEDS ORDERED: LIDOCAINE HCL 2% 2 ML VIAL/AMP(20MG/ML) INFIL ONE (15:00)
--- NOTE | 2020-05-27 15:57 | GI REPORT ---
Patient Name: Nicholas Greer Procedure Date: 05/27/2020 3:06 PM Date of : 1970 Admit Type: Inpatient Age: 49 Gender: Male Attending MD: Corky Vera DO Procedure: Colonoscopy Providers: Corky Vera DO Referring MD: Ronald Green Indications: Hematochezia, Abnormal CT of the GI tract Medicines: Monitored Anesthesia Care Complications: No immediate complications. Estimated Blood Loss: Estimated blood loss: none. Procedure: Pre-Anesthesia Assessment: - Prior to the procedure, a History and Physical was performed, and patient medications and allergies were reviewed. The patient's tolerance of previous anesthesia was also reviewed. The risks and benefits of the procedure and the sedation options and risks were discussed with the patient. All questions were answered, and informed consent was obtained. Prior Anticoagulants: The patient has taken no previous anticoagulant or antiplatelet agents. ASA Grade Assessment: II - A patient with mild systemic disease. After reviewing the risks and benefits, the patient was deemed in satisfactory condition to undergo the procedure. After I obtained informed consent, the scope was passed under direct vision. Throughout the procedure, the patient's blood pressure, pulse, and oxygen saturations were monitored continuously. The Colonoscope was introduced through the anus and advanced to the terminal ileum. After I obtained informed consent, the scope was passed under direct vision. Throughout the procedure, the patient's blood pressure, pulse, and oxygen saturations were monitored continuously.The colonoscopy was performed without difficulty. The patient tolerated the procedure well. The quality of the bowel preparation was good. The terminal ileum, ileocecal valve, appendiceal orifice, and rectum were photographed. Findings: The perianal and digital rectal examinations were normal. Two pedunculated and sessile polyps were found in the sigmoid colon. The polyps were 4 to 7 mm in size. These polyps were removed with a hot snare. Resection and retrieval were complete. Multiple small-mouthed diverticula were found in the sigmoid colon. Non-bleeding internal hemorrhoids were found during retroflexion. The hemorrhoids were small. Impression: - Two 4 to 7 mm polyps in the sigmoid colon, removed with a hot snare. Resected and retrieved. - Diverticulosis in the sigmoid colon. - Non-bleeding internal hemorrhoids. - There was no evidence of active or recent bleeding in the colon. Recommendation: - Resume previous diet. - Continue present medications. - Repeat colonoscopy for surveillance based on pathology results. - Return to primary care physician as previously scheduled. Corky Vera, DO 05/27/2020 3:57:15 PM This report has been signed electronically. Note Initiated On: 05/27/2020 3:06 PM Number of Addenda: 0 I attest to the content of the Intraoperative Record and orders documented therein, exceptions below {[id number]}
--- NOTE | 2020-05-27 16:00 | Anesthesiology Progress Note ---
Date of Service May 27, 2020 Anesthesia Post Procedure Vital Signs Vital Signs: Temp Pulse Pulse Resp BP BP Pulse Ox 05/27/20 15:50 73 18 118/72 98 05/27/20 13:34 37.0 C 84 16 138/81 99 05/27/20 12:35 37.0 C 80 16 142/87 H 98 05/27/20 11:35 36.9 C 77 16 134/81 99 05/27/20 11:05 36.8 C 79 16 129/81 97 05/27/20 10:50 36.8 C 82 16 129/78 98 05/27/20 10:28 36.7 C 79 16 121/81 97 05/27/20 09:15 36.7 C 76 16 143/86 H 100 05/27/20 07:15 36.8 C 78 16 124/80 98 05/27/20 06:45 36.9 C 88 18 123/77 97 05/27/20 06:33 37 C 78 18 125/77 97 05/27/20 06:15 36.9 C 77 20 124/74 96 05/27/20 03:31 36.9 C 97 H 20 134/75 97 05/27/20 00:15 92 H 05/26/20 23:28 37.6 C H 93 H 20 134/80 94 05/26/20 18:50 37.4 C 92 H 20 144/83 H 96 Transfer of Care Handoff Completed per policy Notes Mental Status: alert / awake / arousable Patient Amnestic to Procedure: Yes Nausea / Vomiting: adequately controlled Pain: adequately controlled Airway Patency, RR, SpO2: stable & adequate BP & HR: stable & adequate Hydration State: stable & adequate Anesthetic Complications: no major complications apparent
--- NOTE | 2020-05-27 16:51 | Medical Student Progress Note ---
Date of Service May 27, 2020 Assessment & Plan (1) Acute lower GI bleeding: Pt is pmhx of diverticulitis presenting with bright red stool and anemia with GI following. 1. Hematochezia - continue to have bright red blood stool, but is darkening and decreasing in quantity. Initially suspected LGIB causes such as diverticulosis, angiodysplasia, and colon cancer, however, with recent colonoscopy explore other differential such as UGIB like ulcer. - Stool culture negative for Shigella, Salmonella, and Campylobacter - continue ciprofloxacin 500mg BID and metronidazole 500mg TID - 05/27 colonoscopy showing 2 4-7mm polyp in sigmoid which were resected, diverticulosis in sigmoid, and non-bleeding internal hemorrhoid - per GI, pt to resume previous diet and med and follow up with PCP. Get EGD 2. Anemia - asymptomatic with no tachycardia, weakness, dizziness, or lightheadedness. Suspect anemia due to hematochezia which we are still looking for source - Initial Hgb was 12.1 and today is 8 - received a total of 2 pRBC today with total of 3 since admission - continue H&H (2) Diverticulitis: (3) Hematochezia: Admission and Anticipated Discharge Date Admission Date: May 24, 2020 Supervising Attestation I personally examined the patient and verified all granados points of history and exam, discussed case, and agree with decision making with [place] MS4 Subjective No overnight event. From 5AM - 7AM, he had 4-5 watery, bloody bowel movement. Bowel is foul-smelling and not as bright as previous stool. With BM, he becomes diaphoretic, nausea, and dry heave. Abdominal pain 2/10, but he reports high pain tolerant due to sports injury in past. No lightheadedness, dizziness, numbness/tingling in extremities, or muscle weakness. He is going to receive 2pRBC today. He was feeling 25% better on his first pRBC. He feel tired but related to sleeping environment. He hasn't had an appetite and hasn't eaten in 2 days. His favorite drink is Cola and he hasn't craved it today. No recent travel. He is an avid runner and would run 5K/day on treadmill. Review of Systems Constitutional: + fatigue; no fever, no chills and no increased appetite Respiratory: no cough, no dyspnea and no hemoptysis Cardiovascular: no chest pain, no orthopnea and no palpitations Gastrointestinal: + abdominal pain, + bloating, + nausea and + blood in stools; no dysphagia and no cramping Physical Exam Constitutional: cooperative; no acute distress Eyes: PERRL, conjunctivae normal, anicteric sclerae Lower eyelid paleness. ENMT: Moist mucosa membrane Respiratory: normal respiratory effort, lungs clear to auscultation Cardiovascular: RRR, no murmur, no edema Gastrointestinal (Abdomen): Percussion/Palpation: + abdomen tender; no guarding, abdomen not rigid and no abdominal mass Normal bowel sound. Results & Data ([facility]) Vital Signs (Past 12 Hours) Vital Signs Temp Pulse Pulse Resp BP BP Pulse Ox 05/27/20 12:35 37.0 C 80 16 142/87 H 98 05/27/20 11:35 36.9 C 77 16 134/81 99 05/27/20 11:05 36.8 C 79 16 129/81 97 05/27/20 10:50 36.8 C 82 16 129/78 98 05/27/20 10:28 36.7 C 79 16 121/81 97 05/27/20 09:15 36.7 C 76 16 143/86 H 100 05/27/20 07:15 36.8 C 78 16 124/80 98 05/27/20 06:45 36.9 C 88 18 123/77 97 05/27/20 06:33 37 C 78 18 125/77 97 05/27/20 06:15 36.9 C 77 20 124/74 96 05/27/20 03:31 36.9 C 97 H 20 134/75 97
[2020-05-27 18:03] LABS: Basophils # (auto) 0.02 K/uL (0-0.2); Basophils % (auto) 0.2 %; Eosinophils % (auto) 1.2 %; Hematocrit (blood only) 29.7 % (42-52); Immature Granulocytes # (auto) 0.05 K/uL (0.00-0.02); Immature Granulocytes % (auto) 0.6 %; Lymphocytes % (auto) 19.5 %; Mean Corpuscular Hemoglobin 29.3 pg (25-34); Mean Corpuscular Hgb Conc 33.7 g/dL (32-36); Mean Corpuscular Volume 87.1 fL (80-100); Mean Platelet Volume 8.8 fL (7.4-10.4); Monocytes % (auto) 14.6 %; Neutrophils # (auto) 5.24 K/uL (1.4-6.5); Neutrophils % (auto) 63.9 %; Platelet Count 306 K/uL (130-400); RDW Coefficient of Variation 14.4 % (11.5-14.5); RDW Standard Deviation 43.8 fL (36.4-46.3); Red Blood Count 3.41 M/uL (4.7-6.1); White Blood Count 8.21 K/uL (4.8-10.8)
--- NOTE | 2020-05-27 20:01 | Billing Data ---
Date of Service May 27, 2020 Coding Level of Care Code 54381 Subseq Hosp Care Lvl 3
[2020-05-28 00:48] LABS: Hematocrit (blood only) 27.8 % (42-52); Hemoglobin 9.6 g/dL (14.0-18.0)
[2020-05-28] MEDS: metroNIDAZOLE 500 MG/100 ML BAG IV SCH ×2 (04:04→12:27)
[2020-05-28 07:40] LABS: Basophils # (auto) 0.02 K/uL (0-0.2); Basophils % (auto) 0.2 %; Eosinophils # (auto) 0.22 K/uL (0-0.5); Eosinophils % (auto) 2.5 %; Hematocrit (blood only) 29.1 % (42-52); Hemoglobin 9.8 g/dL (14.0-18.0); Immature Granulocytes # (auto) 0.03 K/uL (0.00-0.02); Immature Granulocytes % (auto) 0.3 %; Lymphocytes # (auto) 1.71 K/uL (1.2-3.4); Lymphocytes % (auto) 19.3 %; Mean Corpuscular Hemoglobin 29.4 pg (25-34); Mean Corpuscular Hgb Conc 33.7 g/dL (32-36); Mean Corpuscular Volume 87.4 fL (80-100); Monocytes # (auto) 1.26 K/uL (0.11-0.59); Monocytes % (auto) 14.2 %; Neutrophils # (auto) 5.62 K/uL (1.4-6.5); Neutrophils % (auto) 63.5 %; Platelet Count 324 K/uL (130-400); RDW Coefficient of Variation 14.6 % (11.5-14.5); RDW Standard Deviation 44.9 fL (36.4-46.3); Red Blood Count 3.33 M/uL (4.7-6.1); White Blood Count 8.86 K/uL (4.8-10.8)
[2020-05-28] MEDS: PANTOprazole 40 MG in SYRINGE 0 ML IV SCH (07:47)
[2020-05-28] MEDS: CIPROFLOXACIN / D5W 200 MG/100 ML BAG IV SCH (07:47)
[2020-05-28 08:12] LABS: BUN Creatinine Ratio 11.8 (10-20); Calcium 7.8 mg/dl (8.5-10.1); Creatinine Clr Calc Pharmacy 92.7 ml/min; Est GFR (African American) 82.4; Est GFR (Non-African American) 71.1
--- NOTE | 2020-05-28 09:46 | History & Physical Bridge Note ---
Date of Service May 28, 2020 History & Physical Bridge Note I have examined the patient, reviewed the History & Physical and in the interval since the performance of the History & Physical I have noted the following changes of clinical significance: no further rectal bleeding. Patient has been NPO since midnight. Hgb 9.8 today. PE: A&Ox3. RRR. Lungs CTA bilaterally. Abdomen soft, nontender. Normal bowel sounds. A/P: Rectal bleeding and acute blood loss anemia. 1. NPO for now. 2. EGD with Dr. Vera today. 3. Continue supportive care. 4. Further recommendations pending results of testing. Supervising Physician Co-Signing Physician Notes Agree with KIANA Dill as above Abd: Soft, NT, ND, +BS Continue current therapy Proceed with EGD today
--- NOTE | 2020-05-28 10:38 | Hospitalist Progress Note ---
Date of Service May 28, 2020 Assessment & Plan (1) Hematochezia: Patient is a 49 year old male with a PMHx of diverticulitis who was admitted to [facility] on 05/22/2020 for acute GI bleed and symptomatic anemia. GI following - sigmoidoscopy on 05/27 negative for source; EGD scheduled today. Acute GI bleed - Hgb 14.5 --> 8.0 over course of one week, with associated dizziness/lightheadedness, tachycardia and bright red blood per rectum - Repeat CT abd/pelvis w/ contrast with no sign of diverticulitis - Sigmoidoscopy on 05/27 without sign of active lower GI bleed - Suspect Acute GI bleed 2/2 upper source (PUD); unlikely lower source (diverticulosis vs AVM vs malignancy) given flex sig findings - EGD pending - later today - Continue Protonix 40mg IV BID - Continue IV cipro/flagyl for concern of diverticulitis (day 6) Acute blood loss anemia, resolving - Recurrent bright red blood per rectum, no episodes for last 24 hours - S/p 2 units of pRBCs on 05/27; Hgb 8 --> 10 after infusion and stable - patient consented for blood if Hgb<7, or Hgb<8 and symptomatic - continue IVFs with NSS +20meq KCl 100ml/hr Dispo: med/surg with tele FENGI: NPO pending EGD today DVT: SCDs, chemoprophylaxis contraindicated due to acute GIB Code: full code Admission and Anticipated Discharge Date Admission Date: May 24, 2020 Subjective No acute events overnight. Hgb stable at 9.6. No bloody/tarry BMs since yesterday morning. Patient denies fever/chills, chest pain, palpitations, SOB, N/V, abdominal pain. NPO for upcoming EGD this afternoon. Review of Systems Review of Systems: Pertinent positives and negatives mentioned in HPI Physical Exam Physical Exam: General: A&Ox3. NAD. Cooperative. HEENT: Atraumatic, normocephalic. Pulm: CTAB A&P. -wheezes, -rales, -rhonchi. Symmetrical chest rise. No increase work of breathing. No respiratory distress. Cardiac: RRR, -mrg. Radial pulses intact and symmetrical. Abdominal: soft, non-tender, non-distended, NA BS x 4 Skin: warm, dry Results & Data Results & Data ([facility]) Vital Signs (Past 12 Hours) Vital Signs Temp Pulse Pulse Resp BP Pulse Ox 05/28/20 08:00 68 05/28/20 07:49 37.1 C 74 18 109/69 97 05/28/20 04:12 36.9 C 69 20 134/78 97 05/28/20 00:50 78 05/27/20 23:04 37.4 C 74 18 139/91 99
--- NOTE | 2020-05-28 12:40 | Medical Student Progress Note ---
Date of Service May 28, 2020 Assessment & Plan (1) Acute lower GI bleeding: Pt is pmhx of diverticulitis presenting with bright red stool and anemia with GI following. 1. Hematochezia - Pt has had bright red blood stool, but was darkening and decreasing in quantity. None today. Initially suspected LGIB causes such as diverticulosis, angiodysplasia, and colon cancer, however, with recent colonoscopy explore other differential such as UGIB like ulcer. - Stool culture negative for Shigella, Salmonella, and Campylobacter - continue ciprofloxacin 500mg BID and metronidazole 500mg TID - 05/27 colonoscopy showing 2 4-7mm polyp in sigmoid which were resected, diverticulosis in sigmoid, and non-bleeding internal hemorrhoid - NPO, awaiting EGD 2. Anemia - asymptomatic with no tachycardia, weakness, dizziness, or lightheadedness. Suspect anemia due to hematochezia which we are still looking for source - Initial Hgb was 12.1. After 2pRBC yesterday, Hgb increased from 8 to 10 and is now 9.8 - received a total of 3 pRBC since admission (2) Diverticulitis: (3) Hematochezia: Admission and Anticipated Discharge Date Admission Date: May 24, 2020 Subjective Pt is doing better. He has had no BM since yesterday, but hasn't been eating. Since last 2pRBC yesterday, he is feeling a total of 50% better. He states his noticed that he has had morning cough for years. He has a hx of GERD that worsen in March with increase morning cough and sore throat, tried omeprazole for 3-4 days with no relief. No meds since then. No lightheadedness, fatigue, dizziness, SOB, tachycardia, CP, palpitation, hemoptysis, or abdomen pain. Review of Systems Constitutional: no fever, no chills, no fatigue and no anorexia Ear, Nose, Mouth, Throat: no dizziness Respiratory: no cough, no dyspnea and no hemoptysis Cardiovascular: no chest pain, no dyspnea on exertion and no orthopnea Gastrointestinal: + heartburn; no abdominal pain and no vomiting Physical Exam Constitutional: comfortable; no acute distress Respiratory: normal respiratory effort, lungs clear to auscultation Cardiovascular: RRR, no murmur, no edema Results & Data ([facility]) Vital Signs (Past 12 Hours) Vital Signs Temp Pulse Pulse Resp BP Pulse Ox 05/28/20 11:20 37.0 C 71 18 119/72 97 05/28/20 08:00 68 05/28/20 07:49 37.1 C 74 18 109/69 97 05/28/20 04:12 36.9 C 69 20 134/78 97 05/28/20 00:50 78
[2020-05-28] MEDS ORDERED: ePHEDrine sulfate 50 MG/ML AMP IV PRN (13:07)
[2020-05-28] MEDS ORDERED: ATROPINE SULFATE 0.1 MG/ML 10ML SYR IV PRN (13:07)
--- NOTE | 2020-05-28 13:07 | Anesthesiology Consultation ---
Date of Service May 28, 2020 Assessment & Plan ASA ASA2 Proposed Anesthesia Anesthesia Type: MAC Risk / Benefits Reviewed With: PT / POA / Parent / Guardian, Accepts Plan and Informed Consent Obtained History Surgery Operation Date: 05/27/20 16:00 Proposed Procedures p Flexible Sigmoidoscopy Dr Chuy Burden Case, DO Operation Date: 05/28/20 16:00 Proposed Procedures p Esophagogastroduodenoscopy Dr Chuy Burden Case, DO Height/Weight Height: 5 ft 11 in Weight: 104.6 kg Allergies Allergy/AdvReac Type Severity Reaction Status Date / Time Penicillins Allergy Unknown STRONG Verified 05/28/20 12:56 FAMILY HX ALLERGY Medications Home Medications Medication Instructions Recorded Confirmed Last Taken ciprofloxacin HCl 500 mg PO BID #15 tab 05/23/20 Unknown metronidazole 500 mg PO TID #22 tab 05/23/20 Unknown Active Medications Generic Name Dose Route Start Last Admin Trade Name Freq PRN Reason Stop Dose Admin Ciprofloxacin Lactate 200 mg in 100 mls @ 100 mls/hr 05/22/20 21:00 05/28/20 09:24 Cipro / D5w IV 06/01/20 20:59 Infused Q12 MARCOS Infusion Protocol Metronidazole 500 mg in 100 mls @ 100 mls/hr 05/22/20 12:00 05/28/20 12:40 Flagyl IV 06/01/20 11:59 0 mls/hr Q8H MARCOS Infusion Pantoprazole Sodium 40 mg/ 10 mls @ 5 mls/min 05/24/20 13:00 05/28/20 07:47 Syringe IV 06/23/20 12:59 5 mls/min BID MARCOS Administration NPO Date Last Intake of Fluids: 05/26/20 Time Last Intake of Fluids: 23:59 Date Last Intake of Solids: 05/20/20 Time Last Intake of Solids: 19:00 Past Medical History Medical History Diverticulitis Exercise / Class Metabolic Activity II 4-5 Yardwork/Stairs/Walk up hill Past Family History Family History Mother Diverticulosis s/p colonic resection Grandfather (Paternal) Diverticulosis Past Surgical History Surgical History History of appendectomy History of vasectomy Past Anesthesia History No Hx of Anesthesia Complications and No Family Hx of Anesthesia Complications History of PONV No Hx of PONV and No Hx of Motion Sickness Social History Smoking Status: Never smoker Hx Alcohol Use: Yes alcohol intake frequency: holidays/special occasions only Hx Substance Use: No Review of Systems denies fever/cough/ colds/ chest pain/ SOB/ TOI denies TOI Physical Exam Vital Signs Last Vital Signs Temp 37.0 C 05/28/20 11:20 Pulse 71 05/28/20 11:20 Resp 18 05/28/20 11:20 BP 119/72 05/28/20 11:20 Pulse Ox 97 05/28/20 11:20 ENMT Mouth: no TMJ abnormality and no dentition abnormality Thyromental Distance: > or= 3.5 Finger Breadths Mallampati Class: II Neck neck extension not limited Respiratory normal respiratory effort; no respiratory distress Auscultation: lungs clear to auscultation bilaterally Cardiovascular Rate/Rhythm: regular rate and regular rhythm Neurologic moves all extremities Psychiatric Orientation: alert and oriented x 3 Testing Laboratory Results 05/28/20 07:03 05/28/20 07:03 PT 10.2 Seconds (9.0-12.0) 05/22/20 01:27 INR 1.0 (0.9-1.1) 05/22/20 01:27 APTT 22.2 Seconds (21.0-31.0) 05/22/20 01:27 Blood Type A Negative 05/27/20 04:16 Antibody Screen NEGATIVE 05/27/20 04:16 05/25/20 09:45 Escherichia coli Shiga Toxins Test - Final Stool Stool Culture - Final No Salmonella isolated, No Shigella isolated, No Campylobacter jejuni isolated. 05/25/20 09:45 Gram Stain - Final Stool
--- NOTE | 2020-05-28 13:41 | GI REPORT ---
Patient Name: Nicholas Greer Procedure Date: 05/28/2020 1:01 PM Date of : 1970 Admit Type: Inpatient Age: 49 Gender: Male Attending MD: Corky Vera DO Procedure: Upper GI endoscopy Providers: Corky Vera DO Referring MD: Ronald Green Indications: Recent gastrointestinal bleeding Medicines: Monitored Anesthesia Care Complications: No immediate complications. Estimated Blood Loss: Estimated blood loss: none. Procedure: Pre-Anesthesia Assessment: - Prior to the procedure, a History and Physical was performed, and patient medications and allergies were reviewed. The patient's tolerance of previous anesthesia was also reviewed. The risks and benefits of the procedure and the sedation options and risks were discussed with the patient. All questions were answered, and informed consent was obtained. Prior Anticoagulants: The patient has taken no previous anticoagulant or antiplatelet agents. ASA Grade Assessment: II - A patient with mild systemic disease. After reviewing the risks and benefits, the patient was deemed in satisfactory condition to undergo the procedure. After obtaining informed consent, the endoscope was passed under direct vision. Throughout the procedure, the patient's blood pressure, pulse, and oxygen saturations were monitored continuously. The Endoscope was introduced through the mouth, and advanced to the second part of duodenum. The upper GI endoscopy was accomplished without difficulty. The patient tolerated the procedure well. Findings: The examined esophagus was normal. Localized mild inflammation characterized by erythema was found in the gastric antrum. Biopsies were taken with a cold forceps for histology. The examined duodenum was normal. Impression: - Normal esophagus. - Gastritis. Biopsied. - Normal examined duodenum. Recommendation: - Resume previous diet. - Continue present medications. - Await pathology results. - Return to primary care physician as previously scheduled. Corky Vera DO 05/28/2020 1:40:38 PM This report has been signed electronically. Note Initiated On: 05/28/2020 1:01 PM Number of Addenda: 0 I attest to the content of the Intraoperative Record and orders documented therein, exceptions below {[id number]}
[2020-05-28] MEDS ORDERED: PROPOFOL IV EMULSION 10 MG/ML 20 ML VIAL IV ONE (13:45)
[2020-05-28] MEDS ORDERED: LIDOCAINE HCL 2% 2 ML VIAL/AMP(20MG/ML) INFIL ONE (13:45)
--- NOTE | 2020-05-28 14:07 | Anesthesiology Progress Note ---
Date of Service May 28, 2020 Anesthesia Post Procedure Vital Signs Vital Signs: Temp Pulse Pulse Resp BP Pulse Ox 05/28/20 14:01 69 18 131/83 98 05/28/20 13:42 77 16 119/81 98 05/28/20 13:06 37.4 C 68 18 126/88 97 05/28/20 11:20 37.0 C 71 18 119/72 97 05/28/20 08:00 68 05/28/20 07:49 37.1 C 74 18 109/69 97 05/28/20 04:12 36.9 C 69 20 134/78 97 05/28/20 00:50 78 05/27/20 23:04 37.4 C 74 18 139/91 99 05/27/20 19:41 36.8 C 66 18 149/85 H 100 05/27/20 16:20 61 16 132/86 100 05/27/20 16:05 66 16 122/85 100 05/27/20 15:50 73 18 118/72 98 Transfer of Care Handoff Completed per policy Notes Mental Status: alert / awake / arousable and participated in evaluation Patient Amnestic to Procedure: Yes Nausea / Vomiting: adequately controlled Pain: adequately controlled Airway Patency, RR, SpO2: stable & adequate BP & HR: stable & adequate Hydration State: stable & adequate Anesthetic Complications: no major complications apparent and Pt Satisfied with anesthetic care
--- NOTE | 2020-05-28 15:20 | Discharge Summary ---
Date of Service May 28, 2020 Admission HPI Per Admitting Provider Patient is a 49 year old male with PMHx diverticulitis who presents after 1 hour history of bright red blood per rectum. Of note, patient had presented on 05/20/20 with similar concerns, however, the bleeding at that time had stopped and it was felt that patient was stable enough to go home with plans to have an appointment with GI on 05/22/20 at 9:30AM. Patient notes that since he was last seen in the ED he had no issues until midnight tonight where he felt that he was about to have diarrhea. He notes that he had roughly 4-5 bowel movements all consisting of bright red blood. Patient then immediately presented to the ED instead of waiting for his appointment later this day for evaluation. Since he has been in the hospital, he has not had any further bleeding per rectum. He notes that prior to the bloody bowel movements he did have some lower L quadrant abdominal pain, however, that has also resolved. Currently patient notes that he feels well and is without fever, chills, SOB, chest pain, abdominal pain, d ysuria, hematuria. He does note the recent history of hematochezia. Admission Exam Per Admitting Provider Constitutional: WD/WN, vitals as above Eyes: PERRL, conjunctivae normal, anicteric sclerae ENMT: external ear and nose normal, oropharynx normal Respiratory: normal respiratory effort, lungs clear to auscultation Cardiovascular: RRR, no murmur, no edema Gastrointestinal (Abdomen): normal bowel sounds, soft, nontender, no hepatosplenomegaly Deferred rectal exam. Per discussion with ED provider rectal exam did show bright red blood per rectum Musculoskeletal: no cyanosis or clubbing, extremities motor strength 5/5 Skin: no rashes, warm and dry Neurologic: PERRL, EOMI, accommodation nl, no face palsy, no dysarthria Psychiatric: A+Ox3, euthymic affect Principal Diagnosis Acute GI bleed Discharge Exam General: A&Ox3. NAD. Cooperative. HEENT: Atraumatic, normocephalic. Pulm: CTAB A&P. -wheezes, -rales, -rhonchi. Symmetrical chest rise. No increase work of breathing. No respiratory distress. Cardiac: RRR, -mrg. Radial pulses intact and symmetrical. Abdominal: soft, non-distended, non-tender, NA BS x 4 Skin: warm, dry Discharge Data Allergies Allergy/AdvReac Type Severity Reaction Status Date / Time Penicillins Allergy Unknown STRONG Verified 05/28/20 12:56 FAMILY HX ALLERGY Consultations 05/22/20 07:27 Consult Gastroenterology Routine Procedures Performed Operation Date: 05/27/20 16:00 Actual Procedures p Colonoscopy Polypectomy - Corky Huerta. Case, DO Operation Date: 05/28/20 16:00 Actual Procedures p EGD Biopsy Cytology - Corky Huerta. Case, DO Ordered Studies 05/22/20 01:18 CT abd pelvis IV con only Urgent 05/24/20 09:45 CT abd pelvis oral and IV con Routine Hospital Course (1) Hematochezia: Patient is a 49 year old male with a PMHx of diverticulosis who was admitted to [facility] on 05/22/2020 for acute GI bleed and symptomatic anemia. GI following - colonoscopy/EGD negative for active bleeding. Acute GI bleed - Hgb 14.5 --> 8.0 over course of one week, with associated dizziness/lightheadedness, tachycardia and bright red blood per rectum - Repeat CT abd/pelvis w/ contrast with no sign of diverticulitis - Colonoscopy on 05/27 without sign of active lower GI bleed - Suspect Acute Lower GI bleed 2/2 diverticulosis - No bloody/tarry bowel movements since the morning of 05/27 - appears to be resolved - can resume regular diet on discharge - Patient will follow up closely with PCP and will call if has more bloody BMs Acute blood loss anemia, resolving - Recurrent bright red blood per rectum - S/p 1 unit pRBCs on 05/23 and 2 units of pRBCs on 05/27, as well as IV fluids; Hgb 8 --> 10 after infusions and stable - Likely due to diverticular bleed as mentioned above - close f/u with PCP and serial H/H within 1-2 weeks Colonic Polyps - removed during colonoscopy on 05/27, pathology pending - schedule serial colonoscopy as outpatient based on pathology results Gastritis - per EGD on 05/28 - recommend patient continue outpatient Omeprazole and f/u with PCP regarding this Suspected Diverticulitis, resolved - initial CT concerning for mild diverticulitis, f/u CT on 05/26 w/o sign of diverticulitis - treated with Cipro/Flagyl IV x7 days while hospitalized, stopped upon discharge Total Time Total Time Spent Total Time Spent (In Minutes): <30 minutes Total Time Includes: Examination of the Patient and Discharge Planning Discharge Plan Discharge Items Patient Disposition: Home - Self-Care Reason For Visit: LOWER GI BLEED Discharge Diagnosis: Acute blood loss anemia, diverticulitis Activity: Resume your previous activity Non-emergency contact: Primary Care Provider Call non-emergency contact if: your symptoms worsen Follow-up/Referrals: Jony Huang MD [Resident] - 05/31/20 Diet: Regular Addtl Attending Provider Instructions: You were admitted to the hospital for lower GI bleed and acute blood loss anemia, suspected to be due to your diverticulosis. You were initially treated with IV antibiotics and you were also given several units of blood to replace the blood that you lost. Our GI specialists were consulted and performed an upper and lower GI scope. Although neither scope showed signs of active bleeding, you stopped having bloody bowel movements on 05/27/2020, right before the scopes were performed. The most likely source of your bleed is from the diverticulosis; it is common for diverticular bleeds to be intermittent and self-resolve, which appears to have occurred in your case. Your upper scope showed signs of gastritis (irritated stomach lining), and we recommend that you continue taking your home Omeprazole and follow up with your PCP. Your lower scope showed two polyps, which were removed. Your PCP will be notified when the pathology results of these polyps are available. You will be discharged in improved, stable condition on 05/28. A discharge summary will be sent to your primary care physician to ensure continuity of care. Please bring this discharge summary with you to your next office appointment so that your provider can review it at that time. Follow-up appointments: - You have an appointment on Wednesday, 05/31 at 3:10pm with Dr. Jony Huang at the [facility] clinic on the second floor of [address] [place] [address] [place] (right across the parking lot from [facility]) in [place]. If you are unable to make this appointment or need to reschedule, please let us know - we will try to be as flexible as possible. The clinic phone number is [phone]. - Keep all your follow-up appointments as already scheduled. If you cannot make an appointment, notify your provider. Medications: - Your medication list has been reviewed and reconciled upon discharge to ensure accuracy and continuity of care. - You are provided with a list of all your current medications at this time. Please review this list closely and make note of any changes. - Please take all of your medications exactly as prescribed. - Tell your primary care provider if you cannot afford your medications. - Call your primary care provider if you are having any side effects or any other problems. - Call your primary care provider before taking any over the counter medications or supplements, including herbals and vitamins, because some of these may interact with your current medications and/or make your symptoms worse. Diet: Some patients find it easier to start with liquids (soup, broth, smoothies) before advancing to softer foods, and then later resuming a regular diet, but medically, it is safe for you to resume a regular diet now. Feel free to advance your diet as tolerated. If you have any questions, please call your PCP. CONTACT YOUR PRIMARY CARE PROVIDER if you experience any of the following: -weakness or fatigue -intermittent rectal bleeding -ongoing blood or dark stools -shortness of breath -feeling tired with normal activity or experiencing dizziness or fainting -trouble sleeping or waking up feeling short of breath or coughing -chest pain or pressure -inability to take medications or follow treatment plan CALL 911 OR GO TO THE EMERGENCY DEPARTMENT if you experience any of the following: -bleeding that does not stop -sudden chest pain, or chest pain that radiates (moves) to your jaw or arm -sudden or severe shortness of breath -sudden onset nausea, vomiting, lightheadedness Thank you for allowing us to participate in your care. Pending Studies at Discharge: No Stand-Alone Forms: My [facility] [employer], Smoking Cessation Medications and DC Order Prescriptions: Discontinued ibuprofen 200 mg Tablet 400 mg PO DIRECTED PRN (Reason: Pain) RF: 0 Discharge Orders: Discharge Order (Routine); Ordered 05/28/20 Ordered By: Armaan Burnham Admission Data Admit Date/Time: 05/24/20 16:02 Attending Provider: Ronald Green Admit Provider: Conrad Hines Primary Care Provider: PCP,NO Other Providers: Shey Pham ; Corky Vera ; Nicki Lane Supervising Physician Co-Signing Physician Notes I personally examined the patient and verified all granados points of history and exam, discussed case, and agree with decision making with Dr Burnham. Feels good, feels up to going home. No further bleeding. No further bowel movements. Vitals noted, in general he is awake and alert pleasant no distress. HEENT normocephalic atraumatic mucous membranes are moist. Breathing unlabored no accessory muscle use good effort. Skin shows no rashes no pallor or icterus. Lower GI bleeding with acute blood loss anemia status post 3 units transfusionappearing more stable now. Bleeding appears to have stopped. Stable for home. Outpatient follow-up. Otherwise as above. Resident Activity Tracking Resident Involvement: Resident Care Provided Care Provided: Adult Hospital Medicine
--- NOTE | 2020-05-28 19:51 | Billing Data ---
Date of Service May 28, 2020 Coding Level of Care Code D/C Day Management <30 mins
== END 2020-05-28 17:00 | disposition home or self-care (01) | DRG 330 ==
LOC: 2W 00:57 → ED 00:57 → SUATTDRO 03:03 → 2W 06:05 → SUATTDRO 05-24 16:02